=== PATIENT | female | born 1960 | race Caucasian/White ===

== ENCOUNTER 2024-12-03 13:28 | Emergency (ER) | payer MEDICARE, MEDICAID, SELFPAY ==
--- OUTSIDE RECORDS SUMMARY | 2024-12-03 13:32 | XMS_ITS | Clinical Summary ---
Author Organization [facility] Address [address] [place] [address] Care Team Providers Care It Risk And Assurance Manager Name Role Phone Amy Drummond NP Primary Care Provide r Allergies Active Allergy Reactions Criticality Noted Date Comments Cephalexin Rash Medium 11/19/2018 Penicillins Other (See comments) Low Reaction: Other, , Sulfa (Sulfonamide Antibiotics) Other (See comments) Low Reaction: Other, Sulfanilamide Unknown Medium Medications diphenhydrAMINE (diphenhydrAMINE ) 2.5 mg/mL liquid 0 0 7 Active Additional Information Patient taking differently: oral 3 times daily PRN, Take 2 teaspoons by mouth, Reported on 10/24/[address] (DEPAKOTE) 250 mg EC tablet 250 mg. 0 0 7 Active Additional Information Patient taking differently: 500 mg oral Daily, Take 2 tablets 1000mg by mouth daily, Reported on 01/20/2024 bismuth subsalicylate, bulk, powder 0 0 7 Active dextromethorphan -guaiFENesin (guaiFENesin DM) 2-20 mg/mL liquid 0 0 7 Active Additional Information Patient taking differently: 5 mL Every 4 hours PRN, cough, Take 2 teaspoons by mouth, Reported on 10/24/2021 magnesium hydroxide (magnesium hydroxide) 80 mg/mL suspension 0 0 7 Active acetaminophen (PAIN RELIEF REGULAR STRENGTH) 325 mg tablet 325 mg. 0 0 7 Active Additional Information Patient taking differently:325 mgEvery 6 hours PRN, Take 2 tablets 650mg by mouth, Indications: Fever, Pain, Reported on 01/20/2024 amLODIPine (NORVASC) 2.5 mg tablet 2.5 mg. 0 0 7 Active carBAMazepine (TEGretol) 200 mg tablet 200 mg. 0 0 7 Active Additional Information Patient taking differently:200 mg,100 once a day, Reported on 01/20/2024 white petrolatum-commercial title examiner al oil (eucerin) cream 0 0 7 Active gabapentin (NEURONTIN) 800 mg tablet 800 mg. 0 0 7 Active Additional Information Patient taking differently:800 mg3 times daily, Reported on 01/20/2024 erythromycin (AKNE-MYCIN) 2 % ointment apply by TOPICAL route 2 times every day a thin film to affected area(s) morning and evening 0 0 Active loperamide (IMODIUM) 2 mg capsule take 2 capsule (4MG) by ORAL route after 1st loose stool, followed by 1 capsule after each subsequent loose stool not to exceed 16 mg/day 0 0 Active psyllium (METAMUCIL) 0.52 gram capsule 0 0 Active risperiDONE (RisperDAL) 0.25 mg tabletIndication s:behavior Take 1 tablet (0.25 mg total) by mouth daily before breakfast Active aspirin 81 mg chewable tabletIndication s:heart protection Take 1 tablet (81 mg total) by mouth daily Active risperiDONE (RisperDAL) 0.5 mg tablet Take 1 tablet (0.5 mg total) by mouth nightly Active ferrous sulfate 325 mg (65 mg of elemental iron) tabletIndication s:Iron Deficiency Anemia Take 1 tablet (65 mg of elemental iron total) by mouth 3 (three) times a day with meals Active chlorhexidine (HIBICLENS) 4 % external liquidIndication s:Skin Disinfection Apply topically daily as needed for wound care Active loratadine (CLARITIN) 10 mg tablet Take 1 tablet (10 mg total) by mouth daily 0 Active nitrofurantoin monohydrate (MACROBID) 100 mg capsule Take 1 capsule (100 mg total) by mouth daily 0 Active calcium carbonate-vitami n D3 1,250mg (500mg elemental) - 5 mcg (200 units) per tablet Oyster Shell Calcium-Vitamin D3 500 mg-5 mcg (200 unit) tablet Take by oral route. Active cholecalciferol (VITAMIN D-3) 77246 unit tablet Take 1 tablet (50,000 Units total) by mouth once a week 1 Active ibuprofen (ADVIL,MOTRIN) 600 mg tablet Take 1 tablet (600 mg total) by mouth every 8 (eight) hours 3 Active omeprazole (PriLOSEC) 40 mg capsule 3 Active divalproex (DEPAKOTE SPRINKLE) 125 mg capsule 3 Active carBAMazepine (TEGretol) 100 mg chewable tablet 3 Active midazolam (NAYZILAM) 5 mg/spray (0.1 mL) spray,non-aeroso l spray units Administer 1 spray (5 mg total) into one nostril every 10 (ten) minutes as needed (no more than 2 doses per 3 days.) Administer one spray into one nostril; if a second dose is needed, administer in alternate nostril. A second dose should not be administered if patient is having trouble breathing or excessive sedation. No more than 5 episodes per month. 10 each 3 4 Active Active Problems Problem Noted Date Diagnosed Date Congestive heart failure 08/26/2022 Osteophyte of vertebrae 07/11/2021 Abnormal gait 04/12/2021 Dysphagia 01/02/2021 Nodule of upper lobe of right lung 12/21/2020 Gastroesophageal reflux disease 11/02/2020 Thrombocytopenia 04/30/2019 Legally blind 12/31/2018 Pneumonia 09/30/2017 Assessment & Plan (09/30/2017 5:33 AM MATERIAL LISTER): Patient currently breathing comfortably on room air. Will continue with Levaquin for community-acquired pneumonia and Flagyl for possible aspiration as patient had a seizure 1 week prior. Patient has IV fluids running at 125cc an hour. Given patient's low normotensive blood pressures will give her another bolus. Patient received 2.5 L in the ED. Will continue to monitor. Lactate was normal. P.r.n. Tylenol for fevers. HTN (hypertension) 09/30/2017 Assessment & Plan (09/30/2017 5:32 AM MATERIAL LISTER): Currently low normotensive. Will hold Norvasc. Normocytic anemia 09/30/2017 Assessment & Plan (09/30/2017 5:32 AM MATERIAL LISTER): Baseline hemoglobin appears to be between 9 and 10. No signs of active bleeding. Will continue to monitor but this appears to be stable. Behavioral and emotional disorder with onset in childhood 06/03/2017 Seizure 05/06/2017 Assessment & Plan (09/30/2017 5:33 AM MATERIAL LISTER): Patient has a history of seizure disorder will continue carbamazepine, Depakote and Risperdal as scheduled. 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) Seizure disorder (HCC) Seizure d isorder History of multiple allergies Al lergies Hypertension Hypertension Hx Other Medical profound mental retardation Hx Other Medical gum hypertrophy Hx Other Medical organic phychos is Family History Medical History Relation Name Comments Seizures Other Family history of Seizure disorder; Relation Name Status Comments Other Social History Tobacco Use Types Packs/Day Years Used Date Smoking Tobacco: Never Smokeless Tobacco: Never Tobacco Cessation:Counseling Given: Not Answered Alcohol Use Standard Drinks/Week Comments No 0 (1 standard drink = 0.6 oz pur e alcohol) Comments Unknown Sex and Gender Information Value Date Recorded Sex Assigned at Not on file Legal Sex Female 9:56 AM MATERIAL LISTER Gender Identity Not on file Sexual Orientation Not on file Obstetrics History Last Filed Vital Signs Vital Sign Reading Time Taken Comments Blood Pressure 121/77 10/28/2022 1:05 PM CDT Pulse 75 10/28/2022 1:05 PM CDT Temperature 37.7 C (99.8 F) 10/02/2017 4:10 PM MATERIAL LISTER Respiratory Rate 18 10/02/2017 4:10 PM MATERIAL LISTER Oxygen Saturation 98% 10/28/2022 1:05 PM CDT Inhaled Oxygen Concentration - - Weight 58.5 kg (129 lb) 10/28/2022 1:05 PM CDT Height 165.1 cm (5' 5 ) 01/20/2024 10:30 AM CDT Body Mass Index 21.47 10/28/2022 1:05 PM CDT Plan of Treatment Health Maintenance Due Date Last Done Comments Depression Screening 1960 Fall Risk Assessment 1960 Hepatitis B Screening 01/14/1976 Zoster Vaccine (2 of 3) 11/03/2015 09/08/2015 Colon Cancer Screening-Colonoscopy 02/13/2020 02/12/2010 Pneumococcal vaccine 65+ (3 of 3 - PCV20 or PCV21) 10/09/2020 10/09/2015, 04/23/2007 Well Visit 65+ 2023 Covid-19 Vaccine (3 - 2023-2 5 season) 2024 10/04/2020, 09/13/2020 Breast Cancer Screening-Mammogram 12/11/2024 12/12/2023, 12/12/2023, 10/18/2022, Additional history exists Influenza Vaccine (Season Ended) 2025 05/18/2023, 05/29/2022, 07/11/2021, Additional history exists Osteoporosis Screening-Bone Density Scan 05/05/2025 05/05/2023, 05/05/2023, 07/24/2020 DTaP/Tdap/Td Vaccine (3 - Td or Tdap) 12/06/2027 12/05/2017, 02/22/2016, 03/24/2007 Colon Cancer Screening-CT Colonography Discontinued 02/12/2010 Colon Cancer Screening-DNA Stool Discontinued 02/13/20 10 Colon Cancer Screening-FIT Discontinued 02/12/2010 Colon Cancer Screening-Sigmoidoscopy Discontinued 02/12/2010 Hepatitis C Screening Completed 09/30/2017 Procedures Procedure Name Priority Date/Time Associated Diagnosis Comments HEPATITIS PANEL, ACUTE Routine 09/30/2017 1:16 PM MATERIAL LISTER MAMMOGRAPHY, TOMOGRAPHY, BILATERAL Routine 06/13/2017 4:35 PM CDT COLONOSCOPY 02/12/2010 12:00 AM CDT from Last 3 Months or Most Recently Relevant to Health Maintenance Results * Hepatitis panel, acute (09/30/2017 1:16 PM MATERIAL LISTER) Hep A IgM Negative Negative [facility] ([facility]) Comment:Testing performed by : [facility], [address] [place] [address]., [id number] Hep B core IgM Negative Negative [facility] ([facility]) Comment:Testing performed by : [facility], [address] [place] [address]., [id number] Hep C Ab Negative Negative [facility] ([facility]) Comment:Testing performed by : [facility], [address] [place] [address]., [phone] HepBsAg Negative Negative [facility] ([facility]) Comment:Testing performed by : [facility], [address] [place] [address]., [phone] Blood specimen (specimen) 09/30/2017 1:16 PM MATERIAL LISTER 09/30/2017 6:07 PM MATERIAL LISTER Narrative [facility]) - 09/30/2017 8:38 PM MATERIAL LISTER Diallo Valiente MD LAB MICROBIOLOGY - GEN ERAL ORDERABLES Final Result [facility]) [facility] [place] [address] * MAMMOGRAPHY, TOMOGRAPHY, BILATERAL (06/13/2017 4:35 PM CDT) Anatomical Region Laterality Modality Bilateral Mammography 06/13/2017 4:35 PM CDT Narrative 06/13/2017 4:49 PM CDT SCREENING MAMM W FAYE BI Acc#: [id number] DATE OF EXAM: Jun 13 2017 SCREENING MAMM W FAYE BI HISTORY: ROUTINE SCREENING MENTALLY CHALLENGED PATIENT. TECHNIQUE: 2 views of each breast were obtained. There is motion on all 4 images given patient's limited ability to fully cooperate for the study. Positioning is limited on all 4 views as well. COMPARISON: Dating back to 04/20/2010. FINDINGS: The breasts are heterogeneously dense. No suspicious mass or calcification is seen to suggest mammographic evidence of malignancy. There are a few benign breast calcifications. Digital technology was employed plus computer aided detection software (R2) was utilized in interpretation of these images. This facility utilizes a reminder system to notify patient's of yearly mammograms. IMPRESSION: 1. LIMITED MAMMOGRAPHIC ASSESSMENT GIVEN THE EFFECT OF MOTION ARTIFACT ON ALL 4 VIEWS WELL LIMITED POSITIONING GIVEN PATIENT'S CURRENT CLINICAL STATUS. ALLOWING FOR THAT HOWEVER NO DEFINITIVE MAMMOGRAPHIC EVIDENCE OF MALIGNANCY is seen. 2. ANNUAL FOLLOW-UP RECOMMENDED BI-RADS 2 Electronically signed by: Panchito Grajeda M.D. Interpreting Physician: PANCHITO GRAJEDA M.D. Read on: Jun 13 2017 11:49A Transcribed by: [facility] On: Jun 13 2017 11:47A Approved Electronically by: PANCHITO GRAJEDA M.D. on: Jun 13 2017 11:47A Ordering DR: REFERRAL SELF Attending DR: TEX ZARAGOZA Attending: TEX ZARAGOZA Requesting: SELF, REFERRAL Requesting Fax: -- Attending Fax: -- Attending ID: [id number] Requesting ID: [id number] Report To 1 ID: [id number] Report To 1 Name: TEX ZARAGOZA Report To 1 FAX: -- NextGen Order #: Procedure Note Miscellaneous, Not In File - 06/13/2017 SCREENING MAMM W FAYE BI Acc#: [id number] DATE OF EXAM: Jun 13 2017 SCREENING MAMM W FAYE BI HISTORY: ROUTINE SCREENING MENTALLY CHALLENGED PATIENT. TECHNIQUE: 2 views of each breast were obtained. There is motion on all 4 images given patient's limited ability to fully cooperate for the study. Positioning is limited on all 4 views as well. COMPARISON: Dating back to 04/20/2010. FINDINGS: The breasts are heterogeneously dense. No suspicious mass or calcification is seen to suggest mammographic evidence of malignancy. There are a few benign breast calcifications. Digital technology was employed plus computer aided detection software (R2) was utilized in interpretation of these images. This facility utilizes a reminder system to notify patient's of yearly mammograms. IMPRESSION: 1. LIMITED MAMMOGRAPHIC ASSESSMENT GIVEN THE EFFECT OF MOTION ARTIFACT ON ALL 4 VIEWS WELL LIMITED POSITIONING GIVEN PATIENT'S CURRENT CLINICAL STATUS. ALLOWING FOR THAT HOWEVER NO DEFINITIVE MAMMOGRAPHIC EVIDENCE OF MALIGNANCY is seen. 2. ANNUAL FOLLOW-UP RECOMMENDED BI-RADS 2 Electronically signed by: Panchito Grajeda M.D. Interpreting Physician: PANCHITO GRAJEDA M.D. Read on: Jun 13 2017 11:49A Transcribed by: [facility] On: Jun 13 2017 11:47A Approved Electronically by: PANCHITO GRAJEDA M.D. on: Jun 13 2017 11:47A Ordering DR: MARGOTH SELF Attending DR: TEX ZARAGOZA Attending: TEX ZARAGOZA Requesting: SELF, REFERRAL Requesting Fax: -- Attending Fax: -- Attending ID: [id number] Requesting ID: [id number] Report To 1 ID: [id number] Report To 1 Name: TEX ZARAGOZA Report To 1 FAX: -- NextGen Order #: us Self Referral IMG MAMMO PROCEDURES Final Resul t * COLONOSCOPY (02/12/2010 12:00 AM CDT) Anatomical Region Laterality Modality Other Narrative 02/12/2010 12:00 AM CDT Ordered by an unspecified provider. Procedure Note ProviderDanna MD - 02/12/2010 12:00 AM CDT PROCEDURE REPORT Patient: ERIN NICHOLS Account: [id number] Room No: : 1960 Patient Type: OPA Attend.: Med Nayak M.D. Admit Date: 02/12/2010 Dict.: Med Nayak M.D. Disch. Date: NAME OF PROCEDURE: Colonoscopy. PROCEDURE PERFORMED Diagnostic screening colonoscopy. INDICATION Screening for colon cancer. DATE OF PROCEDURE 02/12/2010. BRIEF HISTORY AND PHYSICAL The patient is a 50-year-old white female with an unknown family history regarding colon cancer. The patient has a history of mental retardation. Colonoscopy is being performed for evaluation and screening. PROCEDURE Sedation was provided by anesthesia service. The procedure ofcolonoscopy including indications and possible complications of bleeding, infection, perforation requiring surgery were discussed with the power of attorneyand consent was obtained. The scoped was introduced into the rectum andadvanced all the way to the cecum which was identified by the ileocecal valve and appendiceal orifice. The quality of the colon preparation overall wasnot optimum and although good view of the colon was obtained, thick stoolwas encountered in some areas where small polyps can be easily missed.Otherwise overall, colon was unremarkable. Retroflexion view of the rectum was unremarkable. IMPRESSION Normal colonoscopy limited by not optimal colon preparation. RECOMMENDATIONS Repeat colonoscopy for screening for colon cancer in five years. Med Nayak M.D. JUANA/mao TD: 02/13/2010 09:13 PROCEDURE REPORT Authenticated by Med Nayak MD On 02/14/2010 02:17:36 PM Historical Provider ENDOSCOPY PROCEDURES Talia l Result from Last 3 Months or Most Recently Relevant to Health Maintenance Insurance MEDICARE [facility] MEDICARE IDMD MEDICARE IDPA Advance Directives For more information, please contact: [phone] * Full Code (Latest Code Status on File) Date Activated Date Inactivated Comments 09/29/2017 7:34 PM 10/02/2017 7:51 PM Care Teams It Risk And Assurance Manager Relationship Specialty Start Date End Date Amy Drummond NP [address] [place] [address] PCP - General Emergency Medicine 01/20/24
--- OUTSIDE RECORDS SUMMARY | 2024-12-03 13:32 | XMS_ITS | Encounter Summary ---
Author Organization [facility] Address [address] [place] [address] Phone Care Team Providers Care Alcohol Law Enforcement Agent Name Role Phone Asha Chavez MD Unavailable Darrell Prater DPRavi Unavailable Unavailable Shon Sanders MD Unavailable Rosio Trotter APRN, PODIATRIC AIDE Unavailable Aym Drummond APRN, PODIATRIC AIDE Primary Care P rovider Shon Sanders MD Unavailable Reason for Visit * Reason Onset Date Comments Advice Only 12/03/2024 Vaginal Discharge 12/03/2024 Vaginal Itching 12/03/2024 Urinary Frequency 12/03/2024 Encounter Details Date Type Department Care Team (Late st Contact Info) Description 12/03/2024 Nurse Triage [facility] [address] [place] [id number] Amy Drummond APRN, PODIATRIC AIDE [address] [place] [address] Advice Only; Vaginal Discharge; Vaginal Itching; Urinary Frequency Social History Tobacco Use Types Packs/Day Years Used Date Smoking Tobacco: Never Smokeless Tobacco: Never Alcohol Use Standard Drinks/Week Comments No 0 (1 standard drink = 0.6 oz pur e alcohol) Sexually Active Control Partners Comments Not Currently Comments No Sex and Gender Information Value Date Recorded Sex Assigned at Not on file Legal Sex Female 8:06 PM CDT Gender Identity Not on file Sexual Orientation Not on file documented as of this encounter Miscellaneous Notes * Telephone Encounter - Katie Lovelace RN - 12/03/2024 12:41 PM CDT SITUATION: Vaginal symptoms, urinary frequency BACKGROUND: 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 Caller is not listed as a personal desk representative designee on the most recent form. Symptoms started on 12/02. ASSESSMENT: Symptom Description / Location: Vaginal itching Vaginal discharge yellowish drainage Vaginal area is irritated Urinary frequency Caller denies patient having urinary pain, abdominal pain, genital area injury, vaginal bleeding, blood in urine, foul smelling urine. Pain: Caller denies pain. Fever: Denies fever. Treatment / Response: none RECOMMENDATION: Caller agreeable to disposition: see in office today. Unable to provide further care advice due to no form on file granting permission to speak to caller. Due to office unavailability within disposition, advised for patient to be seen at prompt care or urgent care. Caller agreeable to prompt care/urgent care. Allergies, medications and pharmacy not reviewed. Caller not on PRD. Discussed utilizing MyChart to: caregiver has no access to patient's mychart. - See care advice and disposition for Guideline. First positive answer recorded, all responses to prior questions were negative. If symptoms increase, change or if new symptoms develop, call your health care provider or call back. Recommendations were based on caller information and is not a diagnosis. Verified and reviewed all triage information with caller. Reason for Disposition Rash (e.g., redness, tiny bumps, sore) of genital area present > 24 hours Itching or rash of female genital area (e.g., labia, vagina, vulva) MODERATE-SEVERE itching (i.e., interferes with school, work, or sleep) Urinating more frequently than usual (i.e., frequency) OR new-onset of the feeling of an urgent need to urinate (i.e., urgency) Protocols used: Vaginal Pxxafwpan-L-GC, Vaginal Nxiooxbr-X-XP, Vulvar Clyqspta-W-BY, Urinary Ewavsfcj-Y-PD * Telephone Encounter - Melida Amado - 12/03/2024 12:40 PM CDT Symptoms: Vaginal Symptoms - Not Bleeding, Urine Symptoms Outcome: Schedule an urgent appointment within same day Reason: Foul-smelling vaginal discharge The caller rejected this outcome. Caller Denied: * Severe pelvic pain now * Any pelvic pain * Vaginal swelling * Can't pass urine (can't pee) documented in this encounter Plan of Treatment Upcoming Encounters Date Type Department Care Team (Late st Contact Info) Description 12/13/2024 10:45 AM CDT Appointment [facility] [address] [place] [address] Mammo Self Referred, Slf Discharge Disposition: Discharged to home or Selfcare 03/29/2025 9:45 AM CDT Office Visit [facility] [address] [place] [phone] Amy Drummond APRN, PODIATRIC AIDE [address] [place] [address] 04/07/2025 9:15 AM CDT Office Visit [facility] [address] [place] [phone] Amy Drummond APRN, PODIATRIC AIDE [address] [place] [address] 09/21/2025 9:00 AM [facility] Office Visit [facility] [address] [place] [address] Shon Sanders MD [address] [facility] [address] [place] [address] 10/21/2025 9:15 AM [facility] Office Visit [facility] - Endocrinology - [place] [address] [place] [address] Asha Chavez MD [address] [facility] [address] [place] [address] documented as of this encounter Visit Diagnoses Not on filedocumented in this encounter Additional Health Concerns Assessment Noted Time PHQ-9 Depression Total Score: 0 09/24/19 17 11:22 AM [facility] documented as of this encounter Care Teams Alcohol Law Enforcement Agent Relationship Specialty Start Date End Date Amy Drummond APRN, PODIATRIC AIDE [address] [place] [address] PCP - General Advanced Practice Nurse 10/14/23 Asha Chavez MD [address] [facility] [address] [place] [address] Consulting Physician Endocrinology 08/16/22 Darrell Prater DPM Podiatry 02/06/22 Shon Sanders MD [address] [facility] [address] [place] [address] Consulting Physician Urological Surgery 09/04/22 Rosio Trotter APRN, JULIANNE [address] [place] [address] Nurse Practitioner Advanced Practice Nurse 04/04/23 [facility]on Sanders MD [facility] [address] [address] Consulting Physician Urology 09/15/24 documented as of this encounter
--- OUTSIDE RECORDS SUMMARY | 2024-12-03 13:32 | XMS_ITS | Referral Summary ---
Author Organization [facility] Building [address] Address [address] [place] [address] Care Team Providers Care Radiation Oncology Therapist Name Role Phone Amy Drummond NP Primary [...] once a day, Reported on 01/20/2024 white petrolatum-product examiner al oil (eucerin) cream 0 0 [...] by oral route. Active cholecalciferol (VITAMIN D-3) 80432 unit tablet Take 1 tablet (50,000 Units [...] 09/30/2017 Assessment & Plan (09/30/2017 5:33 AM TURPENTINE DISTILLER): Patient currently breathing comfortably on room air. [...] 09/30/2017 Assessment & Plan (09/30/2017 5:32 AM TURPENTINE DISTILLER): Currently low normotensive. Will hold Norvasc. Normocytic anemia 09/30/2017 Assessment & Plan (09/30/2017 5:32 AM TURPENTINE DISTILLER): Baseline hemoglobin appears to be between 9 and 10. No signs of active bleeding. Will continue to monitor but this appears to be stable. Behavioral and emotional disorder with onset in childhood 06/03/2017 Seizure 05/06/2017 Assessment & Plan (09/30/2017 5:33 AM TURPENTINE DISTILLER): Patient has a history of seizure disorder will continue carbamazepine, Depakote and Risperdal as scheduled. Therapeutic drug monitoring 05/06/2017 Hypoxia MR (mental retardation) Social History Tobacco Use Types Packs/Day Years Used Date Smoking Tobacco: Never Smokeless Tobacco: Never Tobacco Cessation:Counseling Given: Not Answered Alcohol Use Standard Drinks/Week Comments No 0 (1 standard drink = 0.6 oz pur e alcohol) Comments Unknown Sex and Gender Information Value Date Recorded Sex Assigned at Not on file Legal Sex Female 9:56 AM TURPENTINE DISTILLER Gender Identity Not on file Sexual Orientation Not on file Last Filed Vital Signs Vital Sign Reading Time Taken Comments Blood Pressure 121/77 10/28/2022 1:05 PM CDT Pulse 75 10/28/2022 1:05 PM CDT Temperature 37.7 C (99.8 F) 10/02/2017 4:10 PM TURPENTINE DISTILLER Respiratory Rate 18 10/02/2017 4:10 PM TURPENTINE DISTILLER Oxygen Saturation 98% 10/28/2022 1:05 PM CDT Inhaled Oxygen Concentration - - Weight 58.5 kg (129 lb) 10/28/2022 1:05 PM CDT Height 165.1 cm (5' 5 ) 01/20/2024 10:30 AM CDT Body Mass Index 21.47 10/28/2022 1:05 PM CDT Plan of Treatment Not on file Procedures Procedure Name Priority Date/Time Associated Diagnosis Comments HEPATITIS PANEL, ACUTE Routine 09/30/2017 1:16 PM TURPENTINE DISTILLER MAMMOGRAPHY, TOMOGRAPHY, BILATERAL Routine 06/13/2017 4:35 PM CDT COLONOSCOPY 02/12/2010 12:00 AM CDT from Last 3 Months or Most Recently Relevant to Health Maintenance Results * Hepatitis panel, acute (09/30/2017 1:16 PM TURPENTINE DISTILLER) Hep A IgM Negative Negative [facility] ([facility]) Comment:Testing performed by : [facility], [address] [place] [address]., [id number] Hep B core IgM Negative Negative [facility] ([facility]) Comment:Testing performed by : [facility], [address] [place] [address]., [id number] Hep C Ab Negative Negative [facility] ([facility]) Comment:Testing performed by : [facility], [address] [place] [address], [id number] HepBsAg Negative Negative [facility] ([facility]) Comment:Testing performed by : [facility], [address] [place] [address], [id number] Blood specimen (specimen) 09/30/2017 1:16 PM TURPENTINE DISTILLER 09/30/2017 6:07 PM TURPENTINE DISTILLER Narrative [facility] ([facility]) - 09/30/2017 8:38 PM TURPENTINE DISTILLER Diallo Valiente MD LAB MICROBIOLOGY - GEN ERAL ORDERABLES Final Result [facility] ([facility]) [facility] Department [place] [address] * MAMMOGRAPHY, TOMOGRAPHY, BILATERAL (06/13/2017 4:35 PM CDT) Anatomical Region Laterality Modality Bilateral Mammography 06/13/2017 4:35 PM CDT Narrative 06/13/2017 4:49 PM CDT SCREENING MAMM W FAYE BI Acc#: [id number] DATE OF EXAM: Jun 13 2017 SCREENING [...] on: Jun 13 2017 11:49A Transcribed by: P[facility] On: Jun 13 2017 11:47A Approved Electronically by: PANCHITO GRAJEDA M.D. on: Jun 13 2017 11:47A Ordering DR: MARGOTH SELF Attending DR: TEX ZARAGOZA Attending: TEX ZARAGOZA Requesting: SELF, REFERRAL Requesting Fax: -- Attending Fax: -- Attending ID: [id number] Requesting ID: [id number] Report To 1 ID: [id number] Report To 1 Name: TEX ZARAGOZA Report To 1 FAX: -- NextGen Order #: Procedure Note Miscellaneous, Not In File - 06/13/2017 SCREENING MAMM W FAYE BI Acc#: [id number] DATE OF EXAM: Jun 13 2017 SCREENING [...] on: Jun 13 2017 11:49A Transcribed by: [facility] On: Jun 13 2017 11:47A Approved Electronically by: PANCHITO GRAJEDA M.D. on: Jun 13 2017 11:47A Ordering DR: REFERRAL SELF Attending DR: TEX ZARAGOZA Attending: TEX ZARAGOZA Requesting: SELF, REFERRAL Requesting Fax: -- Attending Fax: -- Attending ID: [id number] Requesting ID: [id number] Report To 1 ID: [id number] Report To 1 Name: TEX ZARAGOZA Report To 1 FAX: -- NextGen Order #: us Self Referral IMG MAMMO PROCEDURES Final Resul t * COLONOSCOPY (02/12/2010 12:00 AM CDT) Anatomical Region Laterality Modality Other Narrative 02/12/2010 12:00 AM CDT Ordered by an unspecified provider. Procedure Note Provider, MD Danna - 02/12/2010 12:00 AM CDT PROCEDURE REPORT Patient: ERIN NICHOLS Account: [id number] Room No: : 1960 Patient Type: OPA [...] Recently Relevant to Health Maintenance Insurance MEDICARE [facility] MEDICARE IDPA MEDICARE IDPA Advance Directives For more information, please contact: [phone] * Full Code (Latest Code Status on File) Date Activated Date Inactivated Comments 09/29/2017 7:34 PM 10/02/2017 7:51 PM Care Teams Radiation Oncology Therapist Relationship Specialty Start Date End Date Amy Drummond NP [address] [place] [address] PCP - General Emergency Medicine 01/20/24
--- OUTSIDE RECORDS SUMMARY | 2024-12-03 13:32 | XMS_ITS | Clinical Summary ---
Author Organization [facility] Address [address] [place] [address] Care Team Providers Care Laboratory Miller Name Role Phone Caroline Chairez MD Primary Care Provider [phone] Source Comments [facility],non-owned Affiliates and Associated Physician Practices is amultiple site organization consisting of ambulatory clinics and hospital sitesin [place], [place], [place] and [place]. This disclosure is being madepursuant to the Care Everywhere program and may not contain all information available regarding this patient. Last updated 18.[facility] Allergies Active Allergy Reactions Criticality Noted Date Comments Cephalexin Unknown,Rash Medium 11/19/2018 Penicillins Unknown Low 07/19/2015 Other reaction(s): Other (See comments) Reaction: Other, , Sulfa Antibiotics Unknown 07/19/2015 Sulfa Drugs Unknown,Other Low 04/11/2021 Reaction: Other, Sulfanilamide Unknown Medium 06/05/2023 Medications * Be aware that medications may not be up to date on this document. Alwaysverify current medications with the patient. Calcium Carbonate-Vitam in D (OYSTER SHELL CALCIUM/D) 500-200 MG-UNIT Take 1 (one) tablet by mouth every 7 days Active acetaminophen (Tylenol) 325 MG tablet Take 1 (one) tablet to 2 (two) tablets by mouth every 6 hours as needed for Fever, Pain or Headache Active chlorhexidine gluconate (Hibiclens) 4 % solution Apply to affected area once daily as needed Active diphenhydrAMINE (Benadryl) 25 MG tablet Take 1 (one) tablet by mouth every 6 hours as needed Active diphenhydrAMINE (Benadryl) 2 % cream Apply to affected area 3 times daily as needed for Itching 3 Active divalproex sprinkle (Depakote Sprinkle) 125 MG capsule Take 2 (two) capsules by mouth 2 times daily Active ferrous sulfate 325 (65 FE) MG tablet Take 1 (one) tablet by mouth once daily 2 Active gabapentin (Neurontin) 800 MG tablet Take 1 (one) tablet by mouth as directed 3 Active ibuprofen (Motrin) 600 MG tablet Take 1 (one) tablet by mouth every 8 hours as needed for Pain or Fever 3 Active Loratadine 10 MG Take 10 mg by mouth as directed Active nitrofurantoin monohyd macro crystals (Macrobid) 100 MG capsule Take 1 (one) capsule by mouth 2 times daily with morning and evening meal 3 Active risperiDONE (RisperDAL) 0.5 MG tablet Take 1 (one) tablet by mouth as directed 3 Active risperiDONE (RisperDAL) 1 MG/ML oral solution Take 2 mL by mouth 2 times daily Active carBAMazepine (TEGretol) 100 MG chew tablet Take 1 (one) tablet by mouth once daily 3 Active carBAMazepine (TEGretol) 200 MG tablet Take 1 (one) tablet by mouth as directed 3 Active omeprazole (PriLOSEC) 40 MG capsule Take 1 (one) capsule by mouth daily before breakfast 3 Active gabapentin (Neurontin) 100 MG capsule Take 1 (one) capsule by mouth as directed Active diphenhydrAMINE elixir (Benadryl) 12.5 MG/5ML solution Take 5 mL by mouth every 4 hours as needed for Insomnia, Itching or Allergies Active Psyllium (REGULOID PO) Take 1 Dose by mouth as directed Active Skin Protectants, Misc. (Minerin Creme) cream Apply to affected area as needed for Dry Skin Active Sennosides-Docu sate Sodium (SENNA-DOCUSATE SODIUM PO) Take 1 tablet by mouth as directed Active Active Problems Problem Noted Date Diagnosed Date Osteoporosis 06/05/2023 06/05/2023 Congestive heart failure 08/26/2022 023 Anxiety 04/17/2021 Malnourished 04/17/2021 Dysphagia 04/12/2021 Intellectual disability 04/12/2021 Abnormal gait 04/12/2021 Essential hypertension 04/12/2021 Hypoxia 04/12/2021 Severe malnutrition 04/05/2021 Aspiration into airway 04/04/2021 Dysphagia 01/02/2021 06/05/2023 Nodule of upper lobe of right lung 12/21/2020 Allergic rhinitis 11/02/2020 Gastroesophageal reflux disease 11/02/2020 Aspiration pneumonia 05/08/2019 Thrombocytopenia 04/30/2019 06/05/2023 Legally blind 12/31/2018 Lives in senior care 11/13/2018 Normocytic anemia 09/30/2017 Overview (04/12/2021): Last Assessment & Plan: Baseline hemoglobin appears to be between 9 and 10. No signs of active bleeding. Will continue to monitor but this appears to be stable. Behavioral and emotional disorder with onset in childhood 06/03/2017 Iron deficiency anemia 08/21/2015 Seizure disorder 07/21/2015 Osteophyte of vertebrae Resolved Problems Problem Noted Date Diagnosed Date Resolved Date Constipation 05/02/2019 05/10/2021 Immunizations Immunization Administration Dates Next Due INFLUENZA VACCINE, TRIV. (AF LURIA, FLUZONE TRIVALENT; 6MO+) (IIV3) 05/23/2020,05/18/2016,06/16/2015 INFLUENZA VACCINE 05/23/2020,05/18/2016,06/16/20 15 INFLUENZA VACCINE, QUADR. (F LUZONE; FLULAVAL; FLUARIX; AFLURIA QUADRIVALENT; 6MO+), 0.5 ML (IIV4) 05/29/2022,07/11/2021,07/01/2019,2018 PNEUMOCOCCAL PCV20 CONJ VAC IM 02/24/2023 PNEUMOCOCCAL PPSV23 04/23/2007 Pneumococcal Pcv13 Conj 10/09/2015 TD (ADULT), 5 LF TETANUS TOX OID, ADSORBED, PF 03/24/2007 TDAP (7yrs+) 12/05/2017,02/22/2016 ZOSTER VACCINE, LIVE 09/08/2015 Social History Tobacco Use Types Packs/Day Years Used Date Smoking Tobacco: Never Smokeless Tobacco: Never Tobacco Cessation:Counseling Given: Not Answered Alcohol Use Standard Drinks/Week Comments Never 0 (1 standard drink = 0.6 oz pur e alcohol) Comments Unknown Sex and Gender Information Value Date Recorded Sex Assigned at Not on file Legal Sex Female 6:32 PM CDT Gender Identity Not on file Sexual Orientation Not on file Last Filed Vital Signs Vital Sign Reading Time Taken Comments Blood Pressure 113/93 05/02/2021 7:39 PM CDT Pulse 78 06/26/2021 2:49 PM COMIC BOOK ARTIST Temperature 36.7 C (98 F) 06/26/2021 2:49 PM COMIC BOOK ARTIST Respiratory Rate 18 05/02/2021 7:39 PM CDT Oxygen Saturation 99% 06/26/2021 2:49 PM COMIC BOOK ARTIST Inhaled Oxygen Concentration 21% 04/28/2021 1 1:14 AM CDT Weight 49 kg (108 lb) 06/26/2021 2:49 PM COMIC BOOK ARTIST Height 157.5 cm (5' 2 ) 06/26/2021 2:49 PM COMIC BOOK ARTIST Body Mass Index 19.75 06/26/2021 2:49 PM COMIC BOOK ARTIST Plan of Treatment Health Maintenance Due Date Last Done Comments COLOGUARD (AGES 45-75) - COLON CA SCREENING 1960 COLON MONITORING 1960 COLONOSCOPY - COLON CA SCREENING 1960 CT COLONOGRAPHY - COLON CA SCREENING 1960 Colorectal Cancer Screening 1960 FIT - COLON CA SCREENING 1960 FLEX SIG - COLON CA SCREENING 1960 LIPID TESTING 1960 MEDICARE AWV 12 MONTHS 1960 HEPATITIS C SCREENING 01/09/1976 ZOSTER VACCINE (2 of 3) 11/03/2015 09/08/2015 Respiratory Syncytial Virus (RSV) Vaccine Pt: or over 60 yrs (1 - Risk 60-74 years 1-dose series) 2018 MAMMOGRAM 07/24/2022 07/24/2020 COVID-19 VACCINE (3 - season) 2024 10/04/2020, 09/13/2020 DEPRESSION SCREENING 08/18/2024 INFLUENZA VACCINE (Season Ended) 2025 05/29/2022, 07/11/2021, 05/23/2020, Additional history exists DTAP/TDAP/TD VACCINES (4 - Td or Tdap) 12/06/2027 12/05/2017, 02/22/2016, 03/24/2007 PNEUMOCOCCAL VACCINE 50+ Completed 023, 10/09/2015, 04/23/2007 BONE DENSITY TESTING Completed 05/05/2023 HEPATITIS B VACCINE Aged Out No longe r eligible based on patient's age to complete this topic HIB VACCINE Aged Out No longer eligi ble based on patient's age to complete this topic HPV VACCINE Aged Out No longer eligi ble based on patient's age to complete this topic MENINGOCOCCAL (Group B) VACCINE SHARED DECISION-MAKING Aged Out No longer eligible based on patient's age to complete this topic MENINGOCOCCAL GROUPS A/C/Y/W VACCINE Aged Out No longer eligible based on patient's age to complete this topic Procedures Procedure Name Priority Date/Time Associated Diagnosis Comments MAMMOGRAM Routine 07/24/2020 from Last 3 Months or Most Recently Relevant to Health Maintenance Results * MAMMOGRAM (07/24/2020) Anatomical Region Laterality Modality Other us Historical Provider MD SCANNING ONLY Final Res ult from Last 3 Months or Most Recently Relevant to Health Maintenance Insurance MEDICARE MEDICAID - OUT OF STATE MEDICARE MEDICAID - [place] Advance Directives * Full Code (Latest Code Status on File) Date Activated Date Inactivated Comments 04/12/2021 1:58 AM 05/02/2021 11:13 PM Care Teams Laboratory Miller Relationship Specialty Start Date End Date Caroline Chairez MD [address] [place] [address] PCP - General Family Medicine 06/05/23
--- OUTSIDE RECORDS SUMMARY | 2024-12-03 13:33 | XMS_ITS | Clinical Summary ---
Author Organization [facility] ENTER Address [address] [place] [address] Phone Care Team Providers Care Rn Allergy Name Role Phone Asha Chavez MD Unavailable Darrell Prater DPRavi Unavailable Unavailable Shon Sanders MD Unavailable Rosio Trotter APRN, SUPERVISOR [employer] Unavailable Amy Drummond APRN, SUPERVISOR [employer] Primary Care P rovider Shon Sanders MD Unavailable Allergies Active Allergy Reactions Criticality Noted Date Comments Cephalexin Rash 11/19/2018 Penicillins Unknown 07/19/2015 Sulfa Antibiotics Unknown 07/19/2015 Sulfanilamide Unknown Medications gabapentin (NEURONTIN) 800 MG TabletIndicatio ns:Seizures Take 800 mg by mouth 3 times daily. Indications: Seizures 07/13/20 15 Active carBAMazepine (TEGretol) 200 MG TabletIndicatio ns:Generalized Epilepsy Take by mouth 3 times daily (with meals). Indications: Generalized Seizure Disorder 12/05/19 18 Active psyllium (REGULOID) 0.52 GM Capsule Take 520 mg by mouth every morning. Active divalproex (DEPAKOTE SPRINKLE) 125 MG Capsule Delayed Release Sprinkle Take 4 Caps by mouth 2 times daily. 120 Cap 05/11/20 19 Active Skin Protectants, Misc. (MINERIN CREME EX) Apply daily. to dry areas of skin Active risperiDONE (RISPERDAL) 0.5 MG Tablet Take 0.25 mg by mouth nightly. Active senna-docusate (Senokot S) 8.6-50 MG TabletIndicatio ns:Constipation , unspecified constipation type Take 1 Tablet by mouth 2 times daily. 120 Tablet 5 10/11/19 21 Active Cholecalciferol (Vitamin D3) 1.25 MG (71690 UT) TabletIndicatio ns:Vitamin D deficiency Take 1 Tablet by mouth once a week. 12 Tablet 1 11/08/19 21 Active carBAMazepine (TEGretol) 100 MG Chewable Tablet Take 100 mg by mouth daily. Active ferrous sulfate 325 (65 Fe) MG TabletIndicatio ns:Iron deficiency anemia, unspecified iron deficiency anemia type Take 1 Tablet by mouth daily. 90 Tablet 1 01/30/20 22 Active Nutritional Supplements (Ensure High Protein) LiquidIndicatio ns:Malnutrition , unspecified type (HCC) Take 1 Can by mouth in the morning and at bedtime. At 3:00 PM and 8:00 PM. 474 mL 3 08/27/19 23 Active diphenhydrAMINE (BENADRYL) 2 % CreamIndication s:Contact dermatitis, unspecified contact dermatitis type, unspecified trigger Apply 1 Dose 3 times daily as needed for Itching. Application Site: Right cheek and chin- Do not apply to eyelids 30 g 01/04/20 23 Active Loratadine 10 MG Capsule Take by mouth. Acti ve acetaminophen (TYLENOL) 325 MG Tablet Take 325 mg by mouth every 4 hours as needed. Active BACITRACIN ZINC EX by Apply externally route. Active diphenhydrAMINE (BENADRYL) 25 MG Tablet Take 25 mg by mouth every 6 hours as needed. Active hydrocortisone 1 % Cream Apply as needed. Application Site: as needed (Description and Location) Active nitrofurantoin, monohydrate-mac rocrystal, (MACROBID) 100 MG Capsule 05/18/20 23 Active fosfomycin tromethamine (MONUROL) 3 GM PackIndications :Acute cystitis with hematuria Take 3 g by mouth once for 1 dose. 3 g 11/27/19 25 2024 Discontinued fosfomycin tromethamine (MONUROL) 3 GM PackIndications :Acute cystitis with hematuria Take 3 g by mouth once for 1 dose. 3 g 11/30/19 25 2024 Discontinued(D uplicate Order) Active Problems Problem Noted Date Diagnosed Date Osteophyte of vertebrae 07/11/2021 Severe intellectual disability 04/05/2021 Dysphagia 01/02/2021 Nodule of upper lobe of right lung 12/21/2020 Allergic rhinitis 11/02/2020 Gastroesophageal reflux disease 11/02/2020 Constipation 05/02/2019 Legally blind 12/31/2018 Lives in intermediate 11/13/2018 Behavioral and emotional disorder with onset in childhood 06/03/2017 Iron deficiency anemia 08/21/2015 Seizure disorder 07/21/2015 Profound intellectual disability 07/21/2015 Osteoporosis Resolved Problems Problem Noted Date Diagnosed Date Resolved Date Congestive heart failure, un specified HF chronicity, unspecified heart failure type 08/26/2022 09/15/2023 Hypochloremia 01/14/2022 01/16/2022 Elevated lactic acid level 01/14/2022 0 01/16/2022 COVID-19 2022 02/12/2022 Malnourished 04/17/2021 09/15/2023 Severe malnutrition 04/05/2021 02/13/20 22 Hyponatremia 04/05/2021 01/16/2022 Aspiration into airway 04/04/202107/13 Orthostatic hypotension 05/11/201906/19 Weakness 05/11/2019 03/31/2020 Aspiration pneumonia 05/08/2019 021 Gastrointestinal hemorrhage with hematemesis 9 07/09/2019 Thrombocytopenia 04/30/2019 03/15/2024 Macrocytic anemia 04/30/2019 02/04/2020 Acute kidney injury 04/30/2019 07/09/20 19 Hematuria 02/22/2019 02/04/2020 Mental disability 12/31/2018 02/12/2022 Abrasion, nose w/o infection 11/26/2018 12/31/2018 Dermatitis 11/13/2018 12/31/2018 Cellulitis of left pinna 11/13/2018 Acquired stenosis of both external ear canals 03/12/31/2018 Hearing loss of both ears du e to cerumen impaction 09/02/2018 12/31/2018 Left otitis media 09/02/2018 12/31/2018 Acute cystitis with hematuria 07/25/2015 07/09/2019 Pneumonia of right lower lob e due to infectious organism 07/21/2015 07/09/2019 HTN (hypertension) 07/21/2015 9 Hypokalemia 07/21/2015 01/29/2022 Hypernatremia 07/21/2015 07/09/2019 Encounters Date Type Department Care Team Description 12/03/2024 [facility] [address] [place] [address] [phone] Amy Drummond APRN, SUPERVISOR [employer] Advice Only; Vaginal Discharge; Vaginal Itching; Urinary Frequency 11/22/2024 [facility]phone [facility] [address] [place] [address] [phone] Amy Drummond APRN, SUPERVISOR [employer] Advice Only; Labs Only 11/04/2024 Results Follow-Up [facility] [place] [address] [place] [phone] Amy Drummond APRN, SUPERVISOR [employer] 11/04/2024 Travel 11/04/2024 Telephone [facility] [place] [address] [place] [phone] Amy Drummond APRN, SUPERVISOR [employer] Results (labs) 10/21/2024 9:15 AM HOTEL ASSISTANT MANAGER Office Visit [facility] End[facility] [address] [place] [phone] Asha Chavez MD Multinodular goiter (Primary Dx) Discharge Disposition: Discharged to home or Selfcare 10/21/2024 Travel 10/08/2024 10:45 AM HOTEL ASSISTANT MANAGER Office Visit [facility] [place] [phone] Amy Drummond APRN, CNP Iron deficiency anemia, unspecified iron deficiency anemia type (Primary Dx); Seizure disorder (HCC); Lives in intermediate; Profound intellectual disability; Constipation, unspecified constipation type; Legally blind; Elevated lipids Discharge Disposition: Discharged to home or Selfcare 10/08/2024 Travel 09/22/2024 Transcribe Orders [facility] [address] [place] [address] [place] [address] Mammo Self Referred, [facility] Encounter for screening mammogram for breast cancer (Primary Dx) 09/15/2024 10:00 AM HOTEL ASSISTANT MANAGER Office Visit [facility] [address] [place] [phone] Shon Sanders MD Recurrent UTI (Primary Dx) Discharge Disposition: Discharged to home or Selfcare 09/15/2024 Travel from Last 3 Months Immunizations Immunization Administration Dates Next Due Albumin IV 05/11/2019 Covid-19, Mrna, Lnp-s, Pf, 3 0 Mcg/0.3 Ml Dose (yoonew) 10/04/2020,09/13/2020 Influenza Vaccine greater than 3 yrs 05/23/2020, 05/18/2016,06/16/2015 06/16/2016 Influenza Vaccine, Quadrivalent, PF 10/08/2022,05/29/2022,07/11/2021,06/18,05/11/2019 Influenza, Seasonal, Injecta ble, Undefined 05/23/2020,05/18/2016,06/16/2015 Influenza, high-dose, trivalent, PF 06/14/2024 Pneumococcal Vaccine - 13 Valent 10/09/2015 Pneumococcal Vaccine Adult - 23 Valent 04/23/2007 Pneumococcal conjugate PCV20 , polysaccharide [id number] conjugate, adjuvant, PF 11/11/2023,02/24/2023 TB Skin Test 12/05/2017,05/27/2015 TDAP Vaccine 12/05/2017,02/22/2016 Td Vaccine (preservative free) 03/24/2007 Zoster Vaccine, live 09/08/2015 Family History Medical History Relation Name Comments Cancer Father Heart Disease Mother Relation Name Status Comments Father Mother Social History Tobacco Use Types Packs/Day Years [...] Sign Reading Time Taken Comments Blood Pressure 114/72 10/21/2024 9:05 AM HOTEL ASSISTANT MANAGER Pulse 79 10/21/2024 9:05 AM HOTEL ASSISTANT MANAGER Temperature 36.2 C (97.1 F) 10/21/2024 9:05 AM HOTEL ASSISTANT MANAGER Respiratory Rate 18 10/21/2024 9:05 AM HOTEL ASSISTANT MANAGER Oxygen Saturation 98% 10/21/2024 9:05 AM HOTEL ASSISTANT MANAGER Inhaled Oxygen Concentration - - Weight 54.2 kg (119 lb 6.4 oz) 10/21/2024 9:05 A M HOTEL ASSISTANT MANAGER Height 167.6 cm (5' 6 ) 10/08/2024 10:42 AM HOTEL ASSISTANT MANAGER Body Mass Index 19.27 10/08/2024 10:42 AM HOTEL ASSISTANT MANAGER Plan of Treatment Upcoming Encounters Date Type Department Care Team (Late st Contact Info) Description 12/13/2024 10:45 AM CDT [facility] [address] [place] [phone] Mammo Self Referred, Sl[facility] Discharge Disposition: Discharged to home or Selfcare 03/29/2025 9:45 AM CDT Office Visit [facility] [place] [address] [place] [phone] Amy Drummond SENIOR CONTROL SYSTEMS ENGINEER, SUPERVISOR [employer] [address] [place] [address] 04/07/2025 9:15 AM CDT [facility] [place] [address] [place] [phone] Amy Drummond APRN, SUPERVISOR [employer] [address] [place] [address] 09/21/2025 9:00 AM HOTEL ASSISTANT MANAGER Office Visit [facility] [address] [place] [phone] Shon Sanders MD #2 [facility] [address] [place] [phone] 10/21/2025 9:15 AM HOTEL ASSISTANT MANAGER [facility] [place] [address] [place] [phone] Asha Chavez MD [address]2 [facility] [address] [place] [phone] Health Maintenance Due Date Last Done Comments Cologuard 01/14/2008 Respiratory Syncytial Virus (RSV) Immunization (Adult) (1 - Risk 60-74 years 1-dose series) 2018 Immunochemical Fecal Occult Blood 05/10/2020 05/10/2019 Mammogram 12/11/2024 12/12/2023, 11/17, 10/18/2022, Additional history exists SARS-COV-2 Immunization ( season) 2024 06/14/2024, 05/29/2022, 07/19/2021, Additional history exists DEXA Bone Density 05/05/2025 05/05/2023, 07/24/2020 Td Immunization Every 10 Years (Adults With 1 Tdap) 12/06/2027 12/05/2017, 02/22/2016, 03/24/2007 Colonoscopy 09/20/2029 09/20/2019, 04/18/2015 Colorectal Cancer Screening 09/20/2029 09/20/2019 Zoster Immunization Discontinued 09/08/2015 Cervical Cancer Screening (CCS) Discontinued Pap Smear Discontinued 08/20/2021, 08/18/2013 Hepatitis C Virus (HCV) Screening Completed 02/24/2023 Pneumococcal Immunization (50+ years) Completed 11/11/2023, 02/24/2023, 10/09/2015, Additional history exists Pneumococcal Immunization Combined Discontinued 11/11/2023, 02/24/2023, 10/09/2015, Additional history exists Influenza Immunization Completed , 05/18/2023, 05/29/2022, Additional history exists HPV/Cotest Discontinued Hepatitis B Immunization Aged Out No longer eligible based on patient's age to complete this topic Meningococcal Immunization (ACWY) Aged Out No longer eligible based on patient's age to complete this topic Rotavirus Immunization Aged Out No lo nger eligible based on patient's age to complete this topic Procedures Procedure Name Priority Date/Time Associated Diagnosis Comments GENETIC TEST 11/23/2024 12:00 AM CDT OPTOMETRY CONSULT 11/05/2024 12: 00 AM CDT THYROID SCREEN WITH REFLEX Routine 11/04/2024 12:03 PM CDT Iron deficiency anemia, unspecified iron deficiency anemia type Seizure disorder (HCC) Profound intellectual disability Constipation, unspecified constipation type CBC WITH AUTO DIFFERENTIAL Routine 11/04/2024 12:03 PM CDT Iron deficiency anemia, unspecified iron deficiency anemia type Seizure disorder (HCC) Profound intellectual disability Constipation, unspecified constipation type THYROID SCREEN WITH REFLEX Routine 11/04/2024 12:03 PM CDT Iron deficiency anemia, unspecified iron deficiency anemia type Seizure disorder (HCC) Profound intellectual disability Constipation, unspecified constipation type LIPID PANEL Routine 11/04/2024 12:03 PM CDT Iron deficiency anemia, unspecified iron deficiency anemia type Seizure disorder (HCC) Profound intellectual disability Constipation, unspecified constipation type Elevated lipids CMP (COMPREHENSIVE METABOLIC PANEL) Routine 11/04/2024 12:03 PM CDT Iron deficiency anemia, unspecified iron deficiency anemia type Seizure disorder (HCC) Profound intellectual disability Constipation, unspecified constipation type COMPLETE BLOOD COUNT (CBC) WITH DIFF Routine 11/04/2024 12:03 PM CDT Iron deficiency anemia, unspecified iron deficiency anemia type Seizure disorder (HCC) Profound intellectual disability Constipation, unspecified constipation type LIPID PANEL 11/02/2024 12:00 AM CDT CMP (COMPREHENSIVE METABOLIC PANEL) 11/02/2024 12:00 AM CDT COMPLETE BLOOD COUNT (CBC) WITH DIFF 11/02/2024 12:00 AM CDT POCT UA AUTOMATED W/O MICRO Routine 09/15/2024 10:13 AM HOTEL ASSISTANT MANAGER Recurrent UTI LEANNA,POST-VOID RES,US,NON-IMAGING Routine 09/15/2024 10:00 AM HOTEL ASSISTANT MANAGER Recurrent UTI [facility] SCREENING BILATERAL DIGITAL W CAD Routine 12/12/2023 1:29 PM CDT Visit for screening mammogram [facility] BONE DENSITOMETRY AXIAL SKELETON Routine 05/05/2023 10:40 AM CDT Post-menopausal Encounter for screening for osteoporosis HEPATITIS C ANTIBODY Routine 02/24/2023 11:11 AM CDT Need for hepatitis C screening test STOOL, OCCULT BLOOD, DIAGNOSTIC, VIA GUAIAC STAT 05/10/2019 1:27 PM CDT from Last 3 Months or Most Recently Relevant to Health Maintenance Results * GENETIC TEST (11/23/2024 12:00 AM CDT) 11/23/2024 us Provider Scan IMMUNOLOGY ORDERABLES Final Resu lt SCAN * OPTOMETRY CONSULT (11/05/2024 12:00 AM CDT) 11/05/2024 us Provider Scan GENERIC SCAN ORDERS CONSULT Talia l Result SCAN * THYROID SCREEN WITH REFLEX (11/04/2024 12:03 PM CDT) TSH 1.057 0.300 - 5.000 mIU/L 11/04/2024 1:45 PM CDT [facility] Blood Venipuncture / Unknown 11/04/2024 12:03 PM CDT 11/04/2024 12:25 PM CDT us Amy Drummond SENIOR CONTROL SYSTEMS ENGINEER, SUPERVISOR [employer] CHEMISTRY ORDER SANTI Final Result [facility] [address] [place] [address] * (ABNORMAL) CBC WITH AUTO DIFFERENTIAL (11/04/2024 12:03 PM CDT) WBC 10.42 4.00 - 12.00 10(3)/mcL 11/04/2024 12:32 PM CDT [facility] RBC 4.21 3.80 - 5.30 10(6)/mcL 11/04/2024 12:32 PM CDT [facility] HEMOGLOBIN (HGB) 13.9 12.0 - 15.8 g/dL 11/04/2024 12:32 PM CDT [facility] HEMATOCRIT (HCT) 40.1 36.0 - 47.0 % 11/04/2024 12:32 PM CDT [facility] MCV 95.2 82.0 - 96.0 fL 11/04/2024 12:32 PM CDT [facility] MCH 33.0 26.0 - 34.0 pg 11/04/2024 12:32 PM CDT [facility] MCHC 34.7 31.0 - 36.0 g/dL 11/04/2024 12:32 PM CDT [facility] PLATELET COUNT 166 140 - 440 10(3)/mcL 11/04/2024 12:32 PM CDT [facility] RDW 12.0 11.8 - 15.5 % 11/04/2024 12:32 PM CDT [facility] MPV 12.0 9.7 - 12.4 fL 11/04/2024 12:32 PM CDT [facility] NEUTROPHILS 54.0 47.0 - 73.0 % 11/04/2024 12:32 PM CDT [facility] LYMPHOCYTES 33.6 18.0 - 42.0 % 11/04/2024 12:32 PM CDT [facility] MONOCYTES 8.5 4.0 - 12.0 % 11/04/2024 12:32 PM CDT [facility] EOSINOPHILS 3.7 0.0 - 5.0 % 11/04/2024 12:32 PM CDT [facility] BASOPHILS 0.2 0.0 - 1.0 % 11/04/2024 12:32 PM CDT [facility] ABSOLUTE NEUTROPHILS 5.62 1.60 - 7.70 10(3)/[facility] 11/04/2024 12:32 PM CDT [facility] ABSOLUTE LYMPHOCYTES 3.50(H) 1.30 - 3.20 10(3)/[facility] 11/04/2024 12:32 PM CDT [facility] ABSOLUTE MONOCYTES 0.89 0.20 - 1.00 10(3)/[facility] 11/04/2024 12:32 PM CDT [facility] ABSOLUTE EOSINOPHIL 0.39 0.00 - 0.40 10(3)/[facility] 11/04/2024 12:32 PM CDT [facility] ABSOLUTE BASOPHILS 0.02 0.00 - 0.10 10(3)/[facility] 11/04/2024 12:32 PM CDT [facility] NRBC PER 100 WBC 0 11/05/19 12:32 PM CDT [facility] Blood Venipuncture / Unknown 11/04/2024 12:03 PM CDT 11/04/2024 12:26 PM CDT us Amy Drummond APRN, SUPERVISOR [employer] HEMATOLOGY ORDE KARTHIKEYAN Final Result [facility] [address] [place] [address] * LIPID PANEL (11/04/2024 12:03 PM CDT) Only the most recent of2 resultswithin the time period is included. CHOLESTEROL 154 <200 mg/dL 11/04/2024 2:03 PM CDT [facility] TRIGLYCERIDES 130 <150 mg/dL 11/04/2024 2:03 PM CDT [facility] HDL CHOLESTEROL 49 >40 mg/dL 2:03 PM CDT [facility] LDL 79 <130 mg/dL 11/04/2024 2:03 PM CDT [facility] VLDL 26 10 - 50 mg/dL 11/04/2024 2:03 PM CDT [facility] CHOL/HDL RATIO 3.1 0.0 - 4.4 11/04/2024 2:03 PM CDT [facility] NON-HDL CHOLESTEROL 105 <130 mg/dL 11/04/2024 2:03 PM CDT [facility] IS THE PATIENT REQUIRED TO BE FASTING? Yes 11/04/2024 2:03 PM CDT [facility] HAS THE PATIENT BEEN FASTING? Yes 11/04/2024 2:03 PM CDT [facility] Blood Venipuncture / Unknown 11/04/2024 12:03 PM CDT 11/04/2024 12:25 PM CDT us Amy Drummond APRN, SUPERVISOR [employer] CHEMISTRY ORDER SANTI Final Result [facility] [address] [place] [address] * (ABNORMAL) CMP (COMPREHENSIVE METABOLIC PANEL) (11/04/2024 12:03 PM CDT) Only the most recent of2 resultswithin the time period is included. SODIUM 131(L) 136 - 145 mmol/L 11/04/2024 2:03 PM CDT [facility] POTASSIUM 4.5 3.5 - 5.1 mmol/L 11/04/2024 2:03 PM CDT [facility] CHLORIDE 98 98 - 107 mmol/L 11/04/2024 2:03 PM CDT [facility] CO2, VENOUS 24 22 - 30 mmol/L 11/04/2024 2:03 PM CDT [facility] ANION GAP 13.5 <18.0 mmol/L 11/04/2024 2:03 PM CDT [facility] GLUCOSE 97 70 - 99 mg/dL 11/04/2024 2:03 PM CDT [facility] BUN 19 10 - 20 mg/dL 11/04/2024 2:03 PM CDT [facility] CREATININE, BLOOD 0.64 0.60 - 1.00 mg/dL 11/04/2024 2:03 PM CDT [facility] BUN/CREATININE RATIO 30(H) 12 - 20 ratio 11/04/2024 2:03 PM CDT [facility] TOTAL PROTEIN 7.2 6.0 - 8.0 g/dL 11/04/2024 2:03 PM CDT [facility] ALBUMIN 3.7 3.5 - 5.0 g/dL 11/04/2024 2:03 PM CDT [facility] A/G RATIO 1.1 1.0 - 2.2 11/04/2024 2:03 PM CDT [facility] CALCIUM 8.8 8.7 - 10.5 mg/dL 11/04/2024 2:03 PM CDT [facility] T BILI 0.2 0.2 - 1.2 mg/dL 11/04/2024 2:03 PM CDT [facility] SGOT (AST) 42 <43 U/L 11/04/2024 2:03 PM CDT [facility] SGPT (ALT) 22 <56 U/L 11/04/2024 2:03 PM CDT [facility] ALKALINE PHOSPHATASE 138 40 - 150 U/L 11/04/2024 2:03 PM CDT [facility] IS THE PATIENT REQUIRED TO BE FASTING? No 11/04/2024 2:03 PM CDT [facility] GFR, ESTIMATED >60 >=60 11/04/2024 2:03 PM CDT [facility] Comment: Creatinine Clearance is the preferred criteria for selecting drug dose adjustments in renally impaired patients. The GFR is provided as additional pertinent clinical information. GFR is reported in mL/min/1.73 sq m. Calculation based on the Chronic Kidney Disease Epidemiology Collaboration (CKD- EPI) equation refit without adjustment for race. GFR, EST. >60 >=60 025 2:03 PM CDT [facility] GFR, EST. NONAFRICAN >60 >=60 11/04/2024 2:03 PM CDT [facility] Blood Venipuncture / Unknown 11/04/2024 12:03 PM CDT 11/04/2024 12:25 PM CDT Amy Drummond APRN, CNP CHEMISTRY ORDER SANTI Final Result Performing Organization Address City/[facility] Co de Phone Number [facility] [address] [place] [address] * COMPLETE BLOOD COUNT (CBC) WITH DIFF (11/02/2024 12:00 AM CDT) 11/02/2024 us Provider Scan HEMATOLOGY ORDERABLES Final Resu lt SCAN * (ABNORMAL) POCT UA AUTOMATED W/O MICRO (09/15/2024 10:13 AM HOTEL ASSISTANT MANAGER) POC UA SPECIFIC GRAVITY 1.010 URINE PH 8.0 5.0 - 9.0 POC URINE LEUKOCYTES 25 /ul(A) Negative Shruthi/uL POC URINE NITRITE Negative Negative POC URINE PROTEIN Negative Negative mg/dL POC URINE GLUCOSE Norm Negative, Norm mg/dL POC URINE KETONE 15 mg/dL(A) Negative mg/dL POC URINE UROBILINOGEN Norm Norm, 0.2 E.U./dL (mg/dL), 1 E.U./dL (mg/dL) POC URINE BILIRUBIN Negative Negative mg/dL POC URINE BLOOD INSTRUMENT Negative Negative Diogenes/uL POC URINE COLOR Yellow POC URINE CLARITY Clear Urine 09/15/2024 10:1 3 AM HOTEL ASSISTANT MANAGER us Shon Sanders MD POINT OF CARE TESTING (MANUAL) F inal Result * LEANNA,POST-VOID RES,US,NON-IMAGING (09/15/2024 10:00 AM HOTEL ASSISTANT MANAGER) Narrative Alicia Newsome RMA - 09/15/2024 10:00 AM HOTEL ASSISTANT MANAGER Alicia Newsome [facility] 09/15/2024 1:46 PM POCT Bladder Scan collected per standing order of Dr. Sanders on 09/15/2024 PVR= 83 ML us Shon Sanders MD PA - SURGERY Final Result * MAX SCREENING BILATERAL DIGITAL W CAD (12/12/2023 1:29 PM CDT) Anatomical Region Laterality Modality breast Bilateral Mammography 12/12/2023 12:5 9 PM CDT Narrative 12/15/2023 12:37 PM CDT - MAX SCREENING BILATERAL DIGITAL W CAD BILATERAL DIGITAL SCREENING MAMMOGRAM WITH CAD WITH CRANIOCAUDAL: 12/12/2023 The study was acquired using digital technology and interpreted from soft copy. Current study was also evaluated with ICAD version 7.2. CLINICAL: Routine screening. Patient has no complaints. Patient is from a intermediate. Exam performed in a wheelchair with a technologist and caregiver holding for exam. Patient repeatedly pulled her breasts out of compression on the MLO views. Unable to obtain ACR quality images due to patient condition. Personal history is unknown. Family history of breast cancer unknown. COMPARISONS: Comparison is made to exams dated: 10/18/2022, 08/13/2021, and 07/24/2020 [facility]. BREAST TISSUE:There are scattered fibroglandular densities in both breasts. FINDINGS: The examination is markedly limited. Only limited craniocaudal views could be obtained secondary to the patient's limited ability to cooperate. Based on the limited examination, no significant masses, calcifications, or other findings are seen in either breast. There has been no significant interval change. IMPRESSION: BI-RAD 1 NEGATIVE Limited examination. Only limited craniocaudal views could be obtained. Based on the limited examination, there is no mammographic evidence of malignancy. A 1 year screening mammogram is recommended. A letter will be sent to the patient with these results. The patient will be entered into a reminder system with a target due date of 1 year for her next screening exam. Electronically signed by: Jagdish Milian M.D. ll/:12/15/2023 11:59:48 Car Distributor(s): RT Niyah(R)(M), [facility] letter sent: Normal Exam Reading location: [facility] BI-RADS: 1 Negative Procedure Note Jagdish Milian MD - 12/15/2023 - MAX SCREENING BILATERAL DIGITAL W CAD BILATERAL DIGITAL SCREENING MAMMOGRAM WITH CAD WITH CRANIOCAUDAL: 12/12/2023 The study was acquired using digital technology and interpreted from soft copy. Current study was also evaluated with ICAD version 7.2. CLINICAL: Routine screening. Patient has no complaints. Patient is from a intermediate. Exam performed in a wheelchair with a technologist and caregiver holding for exam. Patient repeatedly pulled her breasts out of compression on the MLO views. Unable to obtain ACR quality images due to patient condition. Personal history is unknown. Family history of breast cancer unknown. COMPARISONS: Comparison is made to exams dated: 10/18/2022, 08/13/2021, and 07/24/[address] [facility] John[facility]. BREAST TISSUE:There are scattered fibroglandular densities in both breasts. FINDINGS: The examination is markedly limited. Only limited craniocaudal views could be obtained secondary to the patient's limited ability to cooperate. Based on the limited examination, no significant masses, calcifications, or other findings are seen in either breast. There has been no significant interval change. IMPRESSION: BI-RAD 1 NEGATIVE Limited examination. Only limited craniocaudal views could be obtained. Based on the limited examination, there is no mammographic evidence of malignancy. A 1 year screening mammogram is recommended. A letter will be sent to the patient with these results. The patient will be entered into a reminder system with a target due date of 1 year for her next screening exam. Electronically signed by: Jagdish Milian M.D. ll/:12/15/2023 11:59:48 Car Distributor(s): Demetria Akins, RT(R)(M), [facility] letter sent: Normal Exam Reading location: [facility] BI-RADS: 1 Negative Yelena Akhtar APN, [employer] IMG MAMMO ORDERAB LES Final Result * [facility] BONE DENSITOMETRY AXIAL SKELETON (05/05/2023 10:40 AM CDT) Anatomical Region Laterality Modality BODY N/A Computed Radiogr aphy 05/05/2023 12:0 6 PM CDT Impressions 05/05/2023 12:09 PM CDT IMPRESSION: Osteoporosis. REFERENCE: Bone mineral density: Normal (T-score above or = -1.0) Low bone mass (T-score between -1.0 and -2.5) replaces the previously used term osteopenia Osteoporosis (T-score = or below -2.5) Medical evaluation for secondary causes of low bone mineral density may be appropriate. FRAX is a World Health Organization validated fracture risk assessment tool that calculates a person's 10 year probability of a major osteoporosis related fracture and hip fracture. According to the National Osteoporosis Foundation guidelines, postmenopausal women and men age 50 or older with low bone mass and a 10 year probability of a major osteoporosis related fracture = or greater than 20% or a 10 year probability of a hip fracture = or greater than 3% should be considered for treatment. 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 (S/N [id number]) CLINICAL INFORMATION: Current height: 64 inches Maximum height: 64 inches Weight: 133 pounds Risk factors: Adult fracture. COMPARISON: 07/24/2020, 02/28/2015 FINDINGS: AP LUMBAR SPINE L1-L4: Total BMD is 1.429 g/cm2 T-score is 1.9 This is a 3.7% change in comparison to prior exam which is statistically significant. LEFT HIP: Total BMD is 0.676 g/cm2 T-score is -2.6 This is -12.0% change in comparison to prior exam which is statistically significant. Femoral neck BMD is 0.619 g/cm2 T-score is -3.0 FRAX: 10 year risk for a major osteoporotic fracture is 25.7 %, 10 year risk for a hip fracture is 8.0 % THIS IS AN ELECTRONICALLY VERIFIED FINAL REPORT 05/05/2023 12:06 PM - Electronically signed by Zander Gamez M.D. 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 (S/N [id number]) CLINICAL INFORMATION: Current height: 64 inches Maximum height: 64 inches Weight: 133 pounds Risk factors: Adult fracture. COMPARISON: 07/24/2020, 02/28/2015 FINDINGS: AP LUMBAR SPINE L1-L4: Total BMD is 1.429 g/cm2 T-score is 1.9 This is a 3.7% change in comparison to prior exam which is statistically significant. LEFT HIP: Total BMD is 0.676 g/cm2 T-score is -2.6 This is -12.0% change in comparison to prior exam which is statistically significant. Femoral neck BMD is 0.619 g/cm2 T-score is -3.0 FRAX: 10 year risk for a major osteoporotic fracture is 25.7 %, 10 year risk for a hip fracture is 8.0 % THIS IS AN ELECTRONICALLY VERIFIED FINAL REPORT 05/05/2023 12:06 PM - Electronically signed by Zander Gamez M.D. AG: AG Report ID: [id number] Reading Location: [place] [address] IMPRESSION: Osteoporosis. REFERENCE: Bone mineral density: Normal (T-score above or = -1.0) Low bone mass (T-score between -1.0 and -2.5) replaces the previously used term osteopenia Osteoporosis (T-score = or below -2.5) Medical evaluation for secondary causes of low bone mineral density may be appropriate. FRAX is a World Health Organization validated fracture risk assessment tool that calculates a person's 10 year probability of a major osteoporosis related fracture and hip fracture. According to the National Osteoporosis Foundation guidelines, postmenopausal women and men age 50 or older with low bone mass and a 10 year probability of a major osteoporosis related fracture = or greater than 20% or a 10 year probability of a hip fracture = or greater than 3% should be considered for treatment. For further information, including treatment recommendations, please refer to the 2019 ISCD Official Positions (http://www.iscd.org) and the NOF's Clinician's Guide to Prevention and Treatment of Osteoporosis (http://www.nof.org/professionals/clinical-guidelines) Caroline Chairez MD IMG DEXA ORDERABLES Final Re sult * HEPATITIS C ANTIBODY (02/24/2023 11:11 AM CDT) hepatitis C antibody 0.14 <1 S/[facility] ARCH [id number] B 02/25/2023 1:12 AM CDT [facility] Comment: Signal/Cutoff ratio < 0.79 is Nondetected Signal/Cutoff ratio 0.80-0.99 is Grayzone Signal/Cutoff ratio > 0.99 is Detected Supplemental assays are recommended if signal/cutoff ratio is >/=1.00. Signal/cutoff ratio result >/= 5.00 is 97% predictive of positivity for recombinant immunoblot assay (RIBA) and will be reported to the [place] Department of Public Health as required. Blood Venipuncture / Unknown 02/24/2023 11:11 AM CDT 02/24/2023 11:11 AM CDT us Caroline Chairez MD CHEMISTRY ORDERABLES Final R esult [facility] [address] [place] [address], * Stool, Occult Blood, Diagnostic (05/10/2019 1:27 PM CDT) OCCULT BLOOD DIAG, GI BLEED Negative Negative 05/10/2019 2:03 PM CDT [facility] Stool specimen (specimen) STOOL SPECIMEN / Unknown Non-Phlebotomy Collection / Unknown 05/10/2019 1:27 PM CDT 05/10/2019 1:53 PM CDT Edwin Herrera MD BODY FLUIDS & STOOLS ORDERA BLES Final Result [facility] [address] [place] [address] from Last 3 Months or Most Recently Relevant to Health Maintenance Insurance MEDICARE [place]ICAID [place] Advance Directives Documents on File Type Date Recorded 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 PRE-ARREST: Use entire range of life support measures to stabilize the patient. * Full Code Date Activated Date Inactivated Comments 04/04/2021 8:11 PM 04/10/2021 4:47 PM CPR-Full Rony atment: FULL ARREST: Attempt Resuscitation/CPR wit intubation and mechanical ventilation. PRE-ARREST: Use entire range of life support measures to stabilize the patient. * Full Code Date Activated Date Inactivated Comments 04/14/2020 11:35 AM 11/07/2020 2:48 PM * Full Code Date Activated Date Inactivated Comments 03/28/2020 5:05 PM 03/31/2020 6:07 PM CPR-Full Rony atment: FULL ARREST: Attempt Resuscitation/CPR wit intubation and mechanical ventilation. PRE-ARREST: Use entire range of life support measures to stabilize the patient. * Full Code Date Activated Date Inactivated Comments 03/28/2020 10:46 AM 03/28/2020 5:05 PM CPR-Full Tr eatment: FULL ARREST: Attempt Resuscitation/CPR wit intubation and mechanical ventilation. PRE-ARREST: Use entire range of life support measures to stabilize the patient. Care Teams Rn Allergy Relationship Specialty Start Date End Date Amy Drummond APRN, [employer] [address] [place] [address] PCP - General Advanced Practice Nurse 10/14/23 Asha Chavez MD [address] [facility] [address] [place] [address] Consulting Physician Endocrinology 08/16/22 Darrell Prater DPM Podiatry 02/06/22 Shon Sanders MD [address] [facility] [address] [place] [address] Consulting Physician Urological Surgery 09/04/22 Rosio Trotter APRN, [employer] [address] [place] [address] Nurse Practitioner Advanced Practice Nurse 04/04/23 Shon Sanders MD [address] [phone] Consulting Physician Urology 09/15/24
--- OUTSIDE RECORDS SUMMARY | 2024-12-03 13:33 | XMS_ITS | Encounter Summary ---
Author Organization [facility] Address [address] [place] [address] Care Team Providers Care Coordinator Of Genetic Services Name Role Phone Idalia Adams MD Primary Care Provider [phone] Caroline Chairez MD Primary Care Provider [phone] Encounter Details Date Type Department Care Team (Late st Contact Info) Description 02/09/2020 Lab Requisition [facility] [address] [place] [id number] Edwin Herrera MD Social History Tobacco Use Types Packs/Day Years Used Date Smoking Tobacco: Never Assessed Comments Unknown Sex and Gender Information Value Date Recorded Sex Assigned at Not on file Legal Sex Female 6:32 PM CDT Gender Identity Not on file Sexual Orientation Not on file documented as of this encounter Plan of Treatment Not on file documented as of this encounter Procedures Procedure Name Priority Date/Time Associated Diagnosis Comments SARS-COV-2 (COVID-19) IN HOUSE Routine 02/08/2020 12:01 PM CDT documented in this encounter Results * SARS-COV-2 (COVID-19) IN HOUSE (02/08/2020 12:01 PM CDT) COVID-19 PCR Not detected Not detected, Invalid 02/09/2020 11:48 PM CDT [facility] Microbiology SPECIMEN FROM NASOPHARYNGEAL STRUCTURE / Unknown Collection / Unknown 02/08/2020 12:01 PM CDT 02/09/2020 11:09 AM CDT Narrative [facility] - 02/09/2020 11:48 PM CDT This Real Time RT-PCR assay was developed and its performance characteristics determined by [facility]. This test has been authorized by the Food and Drug administration (FDA)under an Emergency Use Authorization (EUA). This test has been validated in accordance with the FDA's guidance document Policy for Diagnostic Testing in Laboratories Certified to perform High Complexity Testing under CLIA prior to Emergency Use Authorization for Coronavirus Disease-2019 during the Public Health Emergency issued on October 16, 2019. FDA independent review of this validation is pending. This test is only authorized for the duration of time the declaration that circumstances exist justifying the authorization of emergency use of in vitro diagnostic tests for detection of SARS-CoV-2 virus and/or diagnosis of COVID-19 infection under section 564(b)(1) of the Act, 21 U.S.C 360bbb-3 (b)(1), unless the authorization is terminated or revoked sooner. Edwin Herrera MD LAB - MICROBIOLOGY ORDERABL ES Final Result [facility] [address] [place] [address], [facility] [phone] documented in this encounter Visit Diagnoses Not on filedocumented in this encounter Additional Health Concerns Infection Onset Date Last Indicated Resolved Time COVID-19 Under Investigation 02/08/2020 02/08/2020 02/09/2020 11:48 PM CDT COVID-19 Under Investigation 04/22/2021 04/22/2021 04/22/2021 10:23 AM CDT documented as of this encounter Care Teams Coordinator Of Genetic Services Relationship Specialty Start Date End Date Idalia Adams MD [address] [address] PCP - General 12/19/17 06/04/23 Caroline Chairez MD [address] [place] [address] PCP - General Family Medicine 06/05/23 documented as of this encounter
--- OUTSIDE RECORDS SUMMARY | 2024-12-03 13:33 | XMS_ITS | Data Portability ---
Author Organization [facility] Avery Mccartney Address [address] [place] [address] Care Team Providers Care Mortar Mixer Operator Name Role Phone EYAL SPEAR Preliminary School Psychologist Assessment No assessment recorded. Plan of Treatment Reminders Order Date Submit Date Provider Last Modified By Organization Details Last Modified Time Details Appointments None recorded. Lab pap, IG + HR HPV 2017 018 [facility], [address] [place] [address], [address], [place], [address], 8 06:07:50 Referral physical therapist referral 2013 014 [email or web address] Not available 4 10:03:08 Procedures None recorded. Surgeries None recorded. Imaging MAMMO, screening, digital, bilateral 2013 014 [email or web address] Not available 5 12:35:39 Medication Orders None recorded. Patient TargetsNo targets recorded. Patient Instructions Encounter Date Encounter Id Patient Instructions Last Modified By Organization Details Last Modified Time 09/17/2016 [id number] learning about breast cancer screening [email or web address] Not available 09/18/2016 08:43:57 12/09/2017 [id number] learning about breast cancer screening [email or web address] Not available 12/09/2017 10:24:12 Reason for Referral Referring Physician: Sushma Vang, Internal Medicine, Encounter Date: 07/25/2014 Results Created Date Observation Date Name Description Value Unit Range Abnormal Flag Note LastModifiedBy Organization Detail LastModifiedTime 12/10/19 18 12/11/2017 pap, IG + HR HPV diagnosis: Commen t NEGAT KALLIE FOR INTRA EPITH ELIAL DONITA Alexandre AND JANINE CHADWICK . Not Available [facility] ([facility]) [address] [place], [address], 12/12/2017 06:07:49 12/10/19 18 12/11/2017 pap, IG + HR HPV specimen adequacy: Sonja pillai Satis facto ry for evalu ation . Endoc ervic al and/o r squam ous metap lasti c cells (endo cervi deondre compo nent) are prese nt. Not Available [facility] ([facility]) [address] [place], [address], 12/12/2017 06:07:49 12/10/19 18 12/11/2017 pap, IG + HR HPV clinician provided ICD10: Sonja pillai Z01.4 19 Not Available [facility] ([facility]) [address] [place], [address], 12/12/2017 06:07:49 12/10/19 18 12/11/2017 pap, IG + HR HPV performed by: Sonja Oswald ongus, Cytot jose ramon pillai (ASCP ) Not Available [facility] ([facility]) [address] [place], [address], 12/12/2017 06:07:49 12/10/19 18 12/11/2017 pap, IG + HR HPV . . Not Available [facility] ([facility]) [address] [place], [address], 12/12/2017 06:07:49 12/10/19 18 12/11/2017 pap, IG + HR HPV note: Sonja pillai The Pap smear is a scree allie test desig emmanuel to aid in the detec tion of rashaad ligna nt and malig nant condi tions of the uteri ne cervi x. It is not a diagn ostic proce dure and shoul d not be used as the sole means of detec ting cervi deondre cance r. Both false -posi tive and false -nega tive repor ts do occur . Not Available [facility] ([facility]) [address] [facility], [place], [address], 12/12/2017 06:07:49 12/10/19 18 12/11/2017 pap, IG + HR HPV test methodology: Commen t This liqui d based ThinP rep(R ) pap test was shane benitez with the use of an image guide gus rose Not Available [facility] ([facility]) [address] [facility], [place], [address], 12/12/2017 06:07:49 12/10/19 18 12/12/2017 pap, IG + HR HPV HPV, high-risk Negati ve negati ve This high- risk HPV test detec ts thirt een high- risk types (16/1 8/31/ 33/35 /39/4 5/51/ 52/56 /58/5 ) witho ut diffe renti ation . Not Available [facility] ([facility]) [address] [facility], [place], [address], 12/12/2017 06:07:49 07/25/20 15 05/12/2014 MAMMO , shane kelley, digit al, bilat eral No observ ation record ed. [email or web address] Not Available 2014 14:48:17 08/31/19 16 07/10/2011 imagi ng/di tuos tic resul t No observ ation record ed. [email or web address] Not Available 14:46:54 09/19/19 17 05/22/2016 MAMMO , shane kelley, digit al, bilat eral No observ ation record ed. BARCODE Not Available 2016 08:45:41 Result Notes None recorded. Problems Name Problem SNOMED Code Status Onset Date Resolution Date Notes Provider Name and Address Organization Details Recorded Time Abnormal gait 76138283 Active Brandy muñiz, [facility] 6 16:17:48 Essential hypertension 65625153 Active Brandy muñiz, [place] - [place] 6 16:17:[address]Rai Brandy muñiz, [facility] 6 16:17:48 Mental retardation Active Brandy Cameron null, [facility] 6 16:17:48 Problem Notes None recorded. Procedures Surgical History Date Name Laterality Status Provider Name and Address Organization Details Recorded Time 07/16/20 12 Date of Last Pap Smear completed Devora Ericskon MA [facility] 08/05/2014 11:32:18 09/18/19 08 Cholecystectomy completed Eyal Spear [facility] 08/05/2014 12:21:07 Imaging Results Imaging Date Name Status LastModified by Organiz ation Details LastModified Time 05/12/2014 MAMMO, screening, digital, bilateral completed [email or web address] Information not available 07/25/2015 14:48:17 07/10/2011 imaging/diagno stic result completed [email or web address] Information not available 08/31/2015 14:46:54 05/22/2016 MAMMO, screening, digital, bilateral completed BARCODE Information not available 09/19/2016 08:45:41 Procedure Notes None recorded. Medical Equipment None Reported. Allergies Allergen ID Allergen Name Allergen Category Reaction Reaction Severity Criticality Documentation Date Start Date Code Code System Note Provider Name and Address Organization Details Recorded Time 6189 Product containin g penicilli n (product) medicatio n Not available Not available Not available 07/22/2014 11340 8001 SNOMED Not Available Not Available Not Available 6190 sulfanila mide medicatio n Not available Not available Not available 07/22/2014 38759 RxNorm Not Available Not Available Not Available Medications Name Sig Start Date Stop Date Status Note LastModified by Organization Details LastModified Time diphenhydram ine 12.5 mg/5 mL oral liquid Take 20 mL every 4 hours by oral route. active Not Available Not Available No t Available doxycycline hyclate 100 mg capsule active Not Available Not Available N ot Available ketoconazole 2 % shampoo active Not Available Not Available Not Available clindamycin HCl 300 mg capsule active Not Available Not Available Not Available loperamide 2 mg capsule active Not Available Not Available N ot Available triamcinolon e acetonide 0.5 % topical cream 12/09 completed Not Available Not Available Not Available azithromycin 250 mg tablet active Not Available Not Available Not Available ibuprofen 800 mg tablet 12/09 completed Not Available Not Available Not Available clonazepam 0.5 mg tablet 09/17 completed Not Available Not Available Not Available clonazepam 1 mg tablet active Not Available Not Available No t Available risperidone 0.25 mg tablet active Not Available Not Available Not Available amlodipine 2.5 mg tablet active Not Available Not Available Not Available metronidazol e 500 mg tablet 12/09 completed Not Available Not Available Not Available levofloxacin 250 mg tablet active Not Available Not Available Not Available ciprofloxaci n 500 mg tablet 12/09 completed Not Available Not Available Not Available triamcinolon e acetonide 0.1 % topical cream active Not Available Not Available Not Available carbamazepin e 200 mg tablet active Not Available Not Available Not Available ofloxacin 0.3 % ear drops active Not Available Not Available Not Available gabapentin 800 mg tablet active Not Available Not Available Not Available econazole nitrate 1 % topical cream 09/17 completed Not Available Not Available Not Available cephalexin 500 mg capsule active Not Available Not Available Not Available neomycin-alex ymyxin-dexam eth 3.5 mg/mL-10,000 unit/mL-0.1% eye drops 12/09 completed Not Available Not Available Not Available nystatin 100,000 unit/gram topical cream active Not Available Not Available Not Available divalproex ER 500 mg tablet,exten ded release 24 hr active Not Available Not Available Not Available carbamazepin e 100 mg chewable tablet active Not Available Not Available Not Available Thera-M tablet Take by oral route. active Not Available Not Available No t Available Ferrous Sulfate FC 325 mg tablet Take 1 tablet every day by oral route. active Not Available Not Available No t Available aspirin 81 mg chewable tablet Chew 1 tablet every day by oral route. active Not Available Not Available No t Available lorazepam 1 mg tablet 12/09 completed Not Available Not Available Not Available ibuprofen 600 mg tablet active Not Available Not Available Not Available polyethylene glycol 3350 17 gram/dose oral powder active Not Available Not Available Not Available levofloxacin 750 mg tablet active Not Available Not Available Not Available methylpredni solone 4 mg tablets in a dose pack active Not Available Not Available No t Available fluticasone propionate 50 mcg/actuatio n nasal spray,suspen camilla active Not Available Not Available Not Available metronidazol e 0.75 % topical gel 12/09 completed Not Available Not Available Not Available risperidone 0.5 mg tablet Take 2 tablets twice a day by oral route. active Not Available Not Available No t Available amoxicillin 875 mg-potassium clavulanate 125 mg tablet active Not Available Not Available Not Available Oyster Shell Calcium-Kimber min D3 500 mg-5 mcg (200 unit) tablet Take by oral route. active Not Available Not Available No t Available Ciprodex 0.3 %-0.1 % ear drops,suspen camilla 12/09 completed Not Available Not Available Not Available Fiber Smooth oral powder Take by oral route. active Not Available Not Available No t Available escitalopram 5 mg tablet 12/09 completed Not Available Not Available Not Available loratadine 12/09 completed Not Available Not Available Not Available Milk of Magnesia active Not Available Not Available Not Available acetaminophe n active Not Available Not Available Not Available Triple Antibiotic active Not Available Not Available N ot Available B Complex active Not Available Not Mica ilable Not Available Guaifenesin- DM active Not Available Not Available Not Available Antacid with Simethicone active Not Available Not Available Not Available Zostavax (PF) 19,400 unit/0.65 mL subcutaneous suspension active Not Available Not Available N ot Available Minerin Creme topical active Not Available Not Available Not Available Vitals Date Recorded Body height Systolic blood pressure Diastolic blood pressure Provider Name and Address Organization Details Last Updated DateTime 12/09/2017 154.94 cm 100 mm[Hg] 80 mm[Hg] [facility] 12/09/2017 09:51:13 Date Recorded Body height Systolic blood pressure Diastolic blood pressure Provider Name and Address Organization Details Last Updated DateTime 08/05/2014 165.1 cm 124 mm[Hg] 72 mm[Hg] Devora Erickson MA [facility] 08/05/2014 11:29:40 Date Recorded Body height Systolic blood pressure Diastolic blood pressure Provider Name and Address Organization Details Last Updated DateTime 09/12/2015 165.1 cm 120 mm[Hg] 76 mm[Hg] [facility] 09/12/2015 16:17:48 Date Recorded Body weight Body height Body mass index (BMI) Systolic blood pressure Diastolic blood pressure Provider Name and Address Organization Details Last Updated DateTime 09/17/2016 14281.15 g 154.94 cm 22 kg/m2 100 mm[Hg] 70 mm[Hg] [facility] 7 08:50:17 Date Recorded Respiratory rate Oxygen saturation Oxygen saturation in Arterial blood by Pulse oximetry Heart rate Body temperature Systolic blood pressure Diastolic blood pressure Provider Name and Address Organization Details Last Updated DateTime 4 12 /min 98 % 98 % 73 /min 97.7 [degF] 136 mm[Hg] 86 mm[Hg] Michelle Mendoza [place] - [facility] 4 12:29:52 Social History Question Answer Notes LastModified by Organizat ion Details LastModified Time Tobacco Smoking Status Never Smoker Devora Erickson MA null, [place] 08/05/2014 11:32:18 What Is Your Level Of Alcohol Consumption? None Information not available 08/05/2014 What Is Your Level Of Caffeine Consumption? Occasional Information not available 12/09/2017 Are You Currently Employed? No Information not available 09/12/2015 What Type Of Diet Are You Following? REGULAR Information not available 09/12/2015 Which Illicit Or Recreational Drugs Have You Used? No Information not available 08/05/2014 Live Alone Or With Others? With Others Information not available 09/12/2015 What Was The Date Of Your Most Recent Tobacco Screening? 12/09/2017 Information not available 03/11/2019 How Many Children Do You Have? 0 Information not available 09/12/2015 What Is Your Relationship Status? Single Information not available 09/12/2015 Are You Sexually Active? No Information not available 09/12/2015 Sex: Unknown Functional Status Question Answer Note LastModified by Organization D etails LastModified Time What is your exercise level? None Information not available 09/12/2015 Mental Status None recorded. Family History Relationship Description Onset Age of this Age Resolved Age Notes LastModified by Organization Details LastModified Time Father Heart disease [place] Not available 2015 16:17:48 Mother Heart disease [place] Not available 2015 16:17:48 Sister Malignant tumor of breast [place] Not available 2015 16:17:48 Medical History Condition Response Other Y Seizures/Epilepsy Y Hypertension Y Kidney or Bladder Problems Y Mental Illness Y Gynecological History Statement/Question Response If Post Menopausal, Age at Menopause 52 Abnormal Pap N Date of Last Pap Smear 07/16/2012 Most Recent Mammogram LMP Unknown Sexually Active? N Obstetrics History GPAL:G 0 P 0 0 0 0 Type Value Multiple Births 0 Full Term 0 Induced 0 Spontaneous 0 Premature 0 Living 0 Ectopics 0 Total 0 Past Encounters Encounter ID Performer Location Encounter Start Date Encounter Closed Date Diagnosis/Indication Diagnosis SNOMED-CT Code Diagnosis ICD10 Code Diagnosis [id number] [address] [place] [address] 07/25/2014 11:41:46 07/25/2014 14:08:12 Abnormal gait 59098439 Fall precaution Essential hypertension 99571289 continue same Seizure 91973481 continu e same [id number] Devora Erickson MA [facility] (CLINICAL NURSE SPECIALIST) [address] [place] [address] 08/05/2014 10:36:41 08/05/2014 15:02:33 Gynecologic examination 49915053 Normal female exam. Pt needs TSH if not done in the past 5 years. She also needs a colonoscop y if not done in the past 10 years. Notes sent to the residential. Screening for malignant neoplasm of breast [id number] Eyal Richardson (CLINICAL NURSE SPECIALIST) [address] [place] [address] 09/12/2015 15:39:06 09/12/2015 17:24:48 Gynecologic examination 20091687 Z01.419 Normal clinical breast and pelvic exam. Last pap done 07/16/12 was negative with negative hr-HPV. Therefore, no pap needed. Pt. UTD on all screening. Note sent with patient to the residential. [id number] [facility] [address] [place] [address] 09/17/2016 08:34:29 09/18/2016 10:08:55 Gynecologic examination 46164087 Z01.419 Normal female exam. Last pap done 07/07/12 was negative with negative hr-HPV. Therefore, no pap needed. Screening for malignant neoplasm of breast 829260006 Z12.31 UTD. Done 05/22/16. Screening for malignant neoplasm of colon 305105137 Z12.11 UTD per caregiver. No records available. [id number] Eyal Richardson (CLINICAL NURSE SPECIALIST) [address] [place] [address] 12/09/2017 09:27:44 12/12/2017 13:11:56 Gynecologic examination 36169067 Z01.419 Normal female exam. Last pap done 07/07/12 was negative with negative hr-HPV. Pap done today. Screening for malignant neoplasm of breast 209332388 Z12.31 UTD. Done 06/2017 Screening for malignant neoplasm of colon 419414248 Z12.11 UTD per caregiver. No records available. Health Concerns Section Related Observation LastModified by Organization Detai ls LastModified Time None Recorded Concern Status LastModified by Organization Details LastModified Time None Recorded Advance Directives Directive None Recorded Payers Encounter Date Sequence Insurance Name Policy Number Policy Santizo Covered Member ID Santizo Member ID Guarantor Name 07/25/2014 1 [place] Erin Wilson [id number] Erin Wilson 07/25/2014 2 [place] OR MEDICARE REPLACEMENT PRIMARY) Erin Wilson [id number] Erin Wilson 08/05/2014 1 [place] Erin Wilson [id number] Erin Wilson 08/05/2014 2 [place] REPLACEMENT PR[place]) Erin Wilson [id number] Erin Wilson 09/12/2015 1 [place] Erin Wilson [id number] Erin Wilson 09/12/2015 2 [place]PLACEMENT [place]IMARY) Erin Wilson [id number] Erin Wilson 09/17/2016 1 [place] Erin Wilson [id number] Erin Wilson 09/17/2016 2 [place] REPLACEMENT PRIMARY) Erin Wilson [id number] Erin Wilson 12/09/2017 1 [place] Erin Wilson [id number] Erin Wilson 12/09/2017 2 [place]ACEMENT [place]) Erin Wilson [id number] Erin Wilson Notes Date Note Type Note Provider Name and Address Organization Details Recorded Time 09/12/2015 text/html Annual GYNReport ed bycaregiver.Menstr ual cycle:Normal menses Urinary symptoms:No hematuria; No incontinence Vulva:No genital lesion Vagina:Normal vaginal discharge Breast:No breast pain; No breast lump; No nipple discharge Current Contraception:Not sexually active Sexual complaints:No sexual complaints; No pain during intercourse; Normal libido Menopausal Symptoms:No menopausal symptoms; Normal vaginal lubrication Psychological symptoms:No depression; No anxiety; No PMDD Preventive measures:Mammogram performed within the past year (04/2015); Up to date on colonoscopy screening (2014)Notes:BHARATH 2014 [place] Ferris SIMumtaz 09/13/2015 16:47:10 09/17/2016 text/html Annual GYNReport ed bypatient.History: Pt. is non-verbal, and unable to communicate CHESTER Ferris 09/17/2016 13:06:06 12/09/2017 text/html Presents for AE. Non-verbal. CHESTER Ferris SIMumtaz 12/09/2017 11:22:49 OBGyn Episode No OBEpisode recorded.
--- OUTSIDE RECORDS SUMMARY | 2024-12-03 13:33 | XMS_ITS | Data Portability ---
Author Organization [facility], Main Office Address [address] [place] [address] Care Team Providers Care Block Handler Name Role Phone JOE SIEGEL Primary Care Provider Assessment No assessment recorded. Plan of Treatment Reminders Order Date Submit Date Provider Last Modified By Organization Details Last Modified Time Details Appointments None record ed. Lab None record ed. Referral None record ed. Procedures None record ed. Surgeries None record ed. Imaging None record ed. Medication Orders None record ed. Patient TargetsNo targets recorded. Patient InstructionsNo instructions recorded. Reason for Referral None Reported. Problems Name Problem SNOMED Code Status Onset Date Resolution Date Notes Provider Name and Address Organization Details Recorded Time Impacted cerumen of bilateral ears 70201595224566 08 Active 2022 Bar Pablo MD [address] [place] [address], [phone] [facility] 3 11:41:39 Problem Notes None recorded. Medical Equipment None Reported. Allergies Allergen ID Allergen Name Allergen Category Reaction Reaction Severity Criticality Documentation Date Start Date Code Code System Note Provider Name and Address Organization Details Recorded Time 67237 Product containin g penicilli n (product) medicatio n Not available Not available Not available 03/20/2023 68323 8001 SNOMED LARA Flores, [facility] 3 11:27:57 29018 Substance with sulfonami de structure and antibacte rial mechanism of action (substanc e) medicatio n Not available Not available Not available 03/20/2023 05825 8003 LARA Yadav, [facility] 3 11:28:02 70294 cephalexi n medicatio n Not available Not available Not available 03/20/2023 2231 RxNorm Stefanie Giraldo RN [facility], [facility] [employer] [facility] 11:28:08 Medications Name Sig Start Date Stop Date Status Note LastModified by Organization Details LastModified Time prednisone 10 mg tablet 03/20 completed Not Available Not Available Not Available clindamycin HCl 300 mg capsule Take 1 capsule every 6 hours by oral route. 03/20 completed Not Available Not Available Not Available azithromyci n 250 mg tablet TAKE DIRECTED 03/20 completed Not Available Not Available Not Available fluconazole 150 mg tablet active Not Available Not Available Not Available omeprazole 40 mg capsule,del ayed release active Not Available Not Available Not Available Macrobid 100 mg capsule Take 1 capsule every 12 hours by oral route. active Not Available Not Available No t Available carbamazepi ne 200 mg tablet active Not Available Not Available Not Available gabapentin 800 mg tablet Take 1 tablet 3 times a day by oral route. active Not Available Not Available No t Available carbamazepi ne 100 mg chewable tablet Chew 2 tablets every 12 hours by oral route. active Not Available Not Available No t Available omeprazole 20 mg capsule,del ayed release active Not Available Not Available Not Available ibuprofen 600 mg tablet active Not Available Not Available Not Available methylpredn isolone 4 mg tablets in a dose pack 03/20 completed Not Available Not Available Not Available divalproex 125 mg capsule,del ayed release sprinkle Take 2 capsules twice a day by oral route. active Not Available Not Available No t Available risperidone 0.5 mg tablet active Not Available Not Available Not Available Benadryl 2 % topical gel active Not Available Not Available Not Available Fiber (psyllium husk) 0.52 gram capsule Take by oral route. active Not Available Not Available No t Available ferrous sulfate active Not Available Not Available Not Available Hibiclens active Not Available Not Mica ilable Not Available Vitamin D3 125 mcg (5,000 unit) tablet Take by oral route. active Not Available Not Available No t Available Vitals Date Recorded Body weight Body temperature Provider Bettie tyesha and Address Organization Details Last Updated DateTime 03/20/2023 14210.08 g 97.8 [degF] Stefanie Giraldo RN [facility] [employer] [facility] 03/20/2023 11:27:41 Social History None recorded. Functional Status None recorded. Mental Status None recorded. Family History Nothing Reported. Medical History No medical history recorded. Gynecological HistoryNo gynecological history recorded. Obstetrics History GPAL:G 0 P 0 0 0 0 Past Encounters Encounter ID Performer Location Encounter Start Date Encounter Closed Date Diagnosis/Indication Diagnosis SNOMED-CT Code Diagnosis ICD10 Code Diagnosis Note [id number] Bar Pablo MD [facility] [address] [place] [address] 03/20/2023 11:06:25 03/20/2023 11:43:36 Impacted cerumen of bilateral ears [id number] 015441 H61.23 Health Concerns Section Related Observation LastModified by Organization Detai ls LastModified Time None Recorded Concern Status LastModified by Organization Details LastModified Time None Recorded Advance Directives Directive None Recorded Payers Encounter Date Sequence Insurance Name Policy Number Policy Santizo Covered Member ID Santizo Member ID Guarantor Name 03/20/2023 1 [place] Erin Wilson [id number] Erin Wilson 03/20/2023 2 [place] [facility] PUBLIC AID Erin Wilson [id number] Erin Wilson Notes Date Note Type Note Provider Name and Address Organization Details Recorded Time 03/20/2023 text/html cerumen impaction bilateral Bar Pablo MD [address] [place] [address], [place], [address], [facility] 03/20/2023 11:42:10 OBGyn Episode No OBEpisode recorded.
--- OUTSIDE RECORDS SUMMARY | 2024-12-03 13:33 | XMS_ITS | Data Portability ---
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 MAKENZIE NOE MD [facility] [address] [address] 09/20/2024 11:53:07 09/20/2024 12:59:10 Screening mammography [id number] Z12.31 Gynecologi c examination [id number] Z01.419 Well woman care- Cervical cancer screening: Pap smear not indicated (hx of normal paps and now >age 65)- Breast cancer screening: mammogram ordered- HPV immunizati on: does not qualify- STD testing: declined- hereditary cancer screening: does not qualify for testing Health Concerns Section Related Observation LastModified by Organization Detai ls LastModified Time None Recorded Concern Status LastModified by Organization Details LastModified Time None Recorded Advance Directives Directive None Recorded Payers Encounter Date Sequence Insurance Name Policy Number Policy Santizo Covered Member ID Santizo Member ID Guarantor Name 06/21/2020 2 [place] [facility] Erin Wilson [id number] 06/21/2020 1 [place] Anish Wilson [id number] 08/20/2021 2 [place] [facility] Erinkesha Wilson [id number] 08/20/2021 1 [place] Oconnell Steve [id number] 08/27/2022 2 [place] [facility] Erinkesha Wilson [id number] 08/27/2022 1 [place] Oconnell Steve [id number] 09/17/2023 2 [place] [facility] Erin Wilson [id number] 09/17/2023 1 [place] A Steve [id number] 09/20/2024 2 [place] [facility] Erin Wilson [id number] 09/20/2024 1 [place] Wilson [id number] Notes Date Note Type Note Provider Name and Address Organization Details Recorded Time 06/21/2020 text/html Annual GYNReport ed bypatient.History:n o gynecologic complaints Menstrual cycle:Postmenopausa l Urinary symptoms:No hematuria; No incontinence Vulva:No genital lesion Vagina:Normal vaginal discharge Breast:No breast pain; No breast lump; No nipple discharge Current Contraception:Not sexually active Sexual complaints:No sexual complaints; No pain during intercourse; Normal libido Menopausal Symptoms:No menopausal symptoms; Normal vaginal lubrication Psychological symptoms:No depression; No anxiety; No PMDD Preventive measures:Encourage self breast examination; Encourage regular exercise; Encourage no tobacco use; Encourage regular mammograms starting age 40; Needs to schedule mammogram; Up to date on colonoscopy screening Never SA Yelena Akhtar [facility] [address], [place], [address], [facility] 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 Post-MenopausalRepo rted bypatient.Menopausa l Symptoms:no menopausal symptoms; normal vaginal lubrication Vaginal Bleeding:history of menopause having occurred; no history of post menopausal bleeding Urinary Symptoms:no hematuria; no incontinence; no nocturia; no urinary frequency Vulva:no genital lesion; no vulvar atrophy Vagina:normal vaginal discharge; no vaginal atrophy Breast:no breast lump; no nipple discharge; no breast pain Sexual Complaints:no sexual complaints Psychological Symptoms:no depression; no anxiety Preventive Measures:encourage regular mammograms starting age 40; encourage self breast examination; encourage regular exercise (Appropriate activity for being wheelchair bound.); encourage no tobacco use; mammogram performed within the past year; needs to schedule bone density (UTD Dexa Next due next year end 2021. Managed by PCP) Yelena Akhtar [facility] [address], [place], [address], [facility] 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 Post-MenopausalRepo rted bypatient.Menopausa l Symptoms:no menopausal symptoms; normal vaginal lubrication Vaginal Bleeding:history of menopause having occurred; no history of post menopausal bleeding Urinary Symptoms:no hematuria; no incontinence; no nocturia; no urinary frequency Vulva:no genital lesion; no vulvar atrophy Vagina:normal vaginal discharge; no vaginal atrophy Breast:no breast lump; no nipple discharge; no breast pain Sexual Complaints:no sexual complaints Psychological Symptoms:no depression; no anxiety Preventive Measures:encourage regular mammograms starting age 40; encourage self breast examination; encourage regular exercise; encourage no tobacco use; needs to schedule mammogram; history of recent colonoscopy Yelena Akhtar [facility] [address], [place], [address], [facility] 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 Post-MenopausalRepo rted bypatient.Menopausa l Symptoms:no menopausal symptoms; normal vaginal lubrication Vaginal Bleeding:history of menopause having occurred; no history of post menopausal bleeding Urinary Symptoms:no hematuria; no incontinence; no nocturia; no urinary frequency Vulva:no genital lesion; no vulvar atrophy Vagina:normal vaginal discharge; no vaginal atrophy Breast:no breast lump; no nipple discharge; no breast pain Sexual Complaints:no sexual complaints Psychological Symptoms:no depression; no anxiety Preventive Measures:encourage regular mammograms starting age 40; encourage self breast examination; encourage regular exercise; encourage no tobacco use; needs to schedule mammogram; history of recent colonoscopy Molly patient career counselor assisting today with travel/care. Assisted in answering questions/updating information. Yelena Akhtar [facility] [address], [place], [address], [facility] 09/17/2023 14:44:40 09/20/2024 text/html Presents today f or her annual well-woman exam. Denies abnormal vaginal discharge. She is not sexually active. She has not noticed any changes or masses in her breasts. Up to date on mammograms. Menopausal, no PMB. No hx of abnormal pap smears. Patient presents with caregiver due to developmental delay. HPI and medical hx taken from caregiver. MAKENZIE NOE MD [address], [place], [address], [facility] 09/20/2024 12:57:34 OBGyn Episode No OBEpisode recorded.
[2024-12-03 13:51] VITALS: BP 125/59; PULSE 67; RESP 18; TEMP 36.1; O2SAT 100
--- NOTE | 2024-12-03 14:36 | ED_ITS ---
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 Caregiver reports that patient has history of UTI's and yeast infections after treatment. Patient was noted to have small amount of yellowish discharge 2 days ago when she was showered and caregiver requesting oral Diflucan medication, have tried vaginal preparations in past without success.Caregiver reports that patent has been grabbing and scratching groin. Caregiver reports that patient received oral antibiotic last week for UTI of fosfomycin and she is on Macrobid 3X weekly as prophylactic. Caregiver reports that patient has not had any fevers. MD elicited complaint: other (small amount of vaginal discharge after receiving treatment for UTI) Pertinent past history: recurrent UTIs and other (yeast infection after antibiotics) Onset (ago): day(s) (2) Location of symptoms: vaginal Severity: mild Vaginal discharge: yellow (small) Sexual activity: No Related Data Home Medications ?Medication ?Instructions ?Recorded ?Confirmed ?Last Taken ?Type carbamazepine 100 mg chewable mg 12/03/24 Unknown History tablet carbamazepine 200 mg tablet mg 12/03/24 Unknown History divalproex 125 mg capsule,delayed mg PO 12/03/24 Unknown History release sprinkle ferrous sulfate 325 mg (65 mg mg 12/03/24 Unknown History iron) tablet (FeroSul) fosfomycin tromethamine 3 gram 12/03/24 Unknown History oral packet gabapentin 800 mg tablet mg 12/03/24 Unknown History nitrofurantoin 12/03/24 Unknown History monohydrate/macrocrystals 100 mg capsule risperidone 0.25 mg tablet mg 12/03/24 Unknown History risperidone 0.5 mg tablet mg 12/03/24 Unknown History Allergies Allergy/AdvReac Type Severity Reaction Status Date / Time cephalexin Allergy Intermediate Unknown Verified 12/03/24 14:01 Penicillins Allergy Unknown uknown Verified 12/03/24 14:01 Sulfa (Sulfonamide Allergy Unknown Unknown Verified 12/03/24 14:01 Antibiotics) Review of Systems Review of Systems: CONSTITUTIONAL: Caregiver reports no fever, chills, or sweats. CARDIOVASCULAR: Denies chest pain, palpitations, or edema. RESPIRATORY: Denies cough or dyspnea. GASTROINTESTINAL: Denies abdominal pain,caregiver reports no recent nausea, vomiting, or diarrhea. GENITOURINARY: Reports dysuria, frequency, urgency. Denies flank pain or hematuria.Caregiver reports treated for URI last week noted to have small amount of yellowish discharge 2 days ago and patient grabbing and scratching groin. SKIN: Denies rash or itching. MUSCULOSKELETAL: Denies back pain or myalgia. Denies CVA tenderness NEUROLOGIC: Denies headache ROS unobtainable: Yes unobtainable due to mental status PMFSH Past Medical History Medical History (Updated 12/04/24 @ 11:23 by Catherine Sumner NP) Sideropenic dysphagia Hypokalemia Organic psychosis Dilantin-induced hepatotoxicity hepatitis Anemia Acne Seizure disorder Vaginal yeast infection Frequent UTI Legally blind Profound intellectual disability Social History Social History (Updated 12/04/24 @ 11:16 by Catherine Sumner NP) Smoking status: Never smoker Alcohol intake: never Substance use: never Living arrangements: [facility] Additional living arrangements comments: profound intellectual disability, legally blind, seizure disorder, Additional occupation/education comments: disabled Gender identity (if verbalized by the patient): Female Comments At time of signature, agree with nursing past medical, surgical, social and family history. There is no relevant family history pertinent to the presenting complaint Exam Narrative: GENERAL: chronic ill-appearing, adequately-nourished, and in no acute distress.unable to answer question HEAD: Normocephalic, atraumatic. NECK: Supple. TM's normal won't open mouth to view throat, unable to follow directions CHEST: Clear to auscultation. No respiratory distress.SAO2 100% on room air HEART: Regular rate and rhythm. No murmur heard. Normal peripheral pulses. ABDOMEN: Soft, nontender on palpation, nondistended, normal active bowel sounds. No CVA tenderness noted on exam EXTREMITIES: Normal range of motion. No edema. SKIN: Warm, dry, no rash.caregiver reports patient scratching and grabbing groin, NEURO: profound intellectual disability, Course Course Emergency Course: Patient is aware of diagnosis, understands and agrees to treatment plan.? Anticipatory guidance given.? Patient agrees to follow-up as directed and is aware of reasons to seek care at the emergency department. Portions of this record may have been created with voice recognition software Level of Care: Express Care Visit Vital Signs Vital signs: Vital Signs Temperature 36.1 C L 12/03/24 13:51 Pulse Rate 67 12/03/24 13:51 Respiratory Rate 18 12/03/24 13:51 Blood Pressure 125/59 L 12/03/24 13:51 Pulse Oximetry 100 12/03/24 13:51 Oxygen Delivery Room Air 12/03/24 13:51 Temperature 36.1 C L 12/03/24 13:51 Pulse Rate 67 12/03/24 13:51 Respiratory Rate 18 12/03/24 13:51 Blood Pressure 125/59 L 12/03/24 13:51 Pulse Oximetry 100 12/03/24 13:51 Oxygen Delivery Room Air 12/03/24 13:51 MDM - Female Genitourinary MDM Narrative Medical decision making narrative: Exam findings and UA show no acute concerns or changes; patient is non-toxic appearing and is in no distress.? Patient is appropriate for outpatient treatment and follow-up. Differential Diagnosis Differential diagnosis: Likely bacterial vaginosis, vaginitis, cystitis and other (vaginal yeast infection post antibiotic treatment for UTI) Medical Records Attestation: I reviewed the patient's medical records. Lab Data Attestation: I reviewed the patient's lab results. Critical Care Time Critical Care Time Critical Care Time: No Discharge Plan Discharge Clinical Impression: Vaginal yeast infection Patient Disposition: Home Condition: Stable Instructions: Antibiotic Form, Yeast Infection (ED) Additional Instructions: Increase fluids especially cranberry juice and water Avoid caffeine and carbonated beverages Diflucan tab 1 today and may repeat in 3 days monitor for any fevers Tylenol/ibuprofen for pain or fever Follow-up with her primary care provider if further problems or concerns Recheck if you have fever over 101, nausea and vomiting. If your symptoms persist, change or worsen significantly before you can contact your personal physician then please, without delay, go to the emergency department for further evaluation. Follow-up with PCP in 7-10 days or sooner if needed Follow up with PCP soon in regards to your blood pressure which is elevated above threshold for referral. Blood pressure above 120/80 may indicate pre- hypertension.minimal elevation Patient Language: Gambian Prescriptions: New fluconazole 150 mg tablet 150 mg PO DAILY Qty: 2 0RF Rx Instructions: take one tab today and may repeat in 72 hours as needed No Action fosfomycin tromethamine 3 gram packet risperidone 0.25 mg tablet carbamazepine 200 mg tablet gabapentin 800 mg tablet ferrous sulfate [FeroSul] 325 mg (65 mg iron) tablet carbamazepine 100 mg tablet,chewable divalproex 125 mg capsule, delayed rel sprinkle PO risperidone 0.5 mg tablet nitrofurantoin monohyd/m-cryst 100 mg capsule Follow-up/Referrals: UNKNOWN,DOCTOR [Primary Care Provider] - Time of Disposition: 14:40 Quality Farzana Coma Scale Eyes: Open Verbal: Nonsensical Speech Motor: Localizes Pain Farzana Coma Total Score: 12
== END 2024-12-03 14:45 | disposition home or self-care (01) ==
PROVIDERS: Emergency Provider Registered Nurse
DX: B37.31 Acute candidiasis of vulva and vagina (principal); H54.8 Legal blindness, as defined in USA; F73 Profound intellectual disabilities; F09 Unspecified mental disorder due to known physiological condition
CPT/HCPCS: 99203; G0463